=== PATIENT | female | born 1960 | race Caucasian/White ===

== ENCOUNTER → 2017-07-27 | Outpatient (CLI) | payer BC ==
--- NOTE | 2017-07-28 10:38 | MM ---
Reason for exam: screening (asymptomatic). Last mammogram was performed 2 years and 5 months ago. History: Patient is postmenopausal. Family history of breast cancer in grandmother. Physical Findings: A clinical breast exam by your physician is recommended on an annual basis and results should be correlated with mammographic findings. MG 3D Screening Mammo W/Cad Bilateral CC and MLO view(s) were taken. Prior study comparison: February 13, 2015, left breast MG work up mamm w CAD LT. February 04, 2015, bilateral MG screening mammo w CAD. The breast tissue is heterogeneously dense. This may lower the sensitivity of mammography. No significant changes when compared with prior studies. ASSESSMENT: Benign, BI-RAD 2 RECOMMENDATION: Routine screening mammogram of both breasts in 1 year.
== END | disposition home or self-care (01) ==
LOC: RADMAMWWP 14:49
PROVIDERS: ATTEND Obstetrics & Gynecology
DX: Z12.31 Encounter for screening mammogram for malignant neoplasm of breast (principal)
CPT/HCPCS: 77063; G0202

== ENCOUNTER 2018-06-14 09:52 | Day surgery (SDC) | payer BC ==
[2018-06-12 10:31] VITALS: BMI 27.4
[~2018-06-14 09:52] MED LIST: LACTATED RINGERS 1,000 ML IV SCH
[2018-06-14] MEDS ORDERED: LIDOCAINE 1% 20 ML VIAL (10MG/ML) FOR IV START INTRADERMA ONE (10:37)
[2018-06-14 10:39] VITALS: TEMP 97
[2018-06-14] MEDS ORDERED: PROPOFOL 10 MG/ML 20 ML VIAL IV ONE (11:18)
--- NOTE | 2018-06-14 11:31 | P.PCN ---
Date of Procedure: 06/14/18 Procedure(s) Performed: BRIEF HISTORY: Patient is a 8-year-old pleasant white female, scheduled for an elective colonoscopy as a part of screening for colorectal neoplasia. PROCEDURE PERFORMED: Colonoscopy. PREOPERATIVE DIAGNOSIS: Screening for colon cancer. IV sedation per Anesthesia. PROCEDURE: After informed consent was obtained, the patient, was brought into the endoscopy unit. IV sedation was administered by Anesthesia under continuous monitoring. Digital rectal examination was normal. Initially the Olympus CF- 160 flexible video colonoscope was then inserted in the rectum, gradually advanced into the cecum without any difficulty. Careful examination was performed as the scope was gradually being withdrawn. Ileocecal valve and the appendiceal orifice were visualized and appeared normal. Prep was excellent. Mucosa of the cecum, ascending colon, transverse colon, descending colon, sigmoid colon, and rectum appeared normal. Retroflexion was performed in the rectum and no lesions were seen. The patient tolerated the procedure well. IMPRESSION: Normal-appearing colon from rectum to cecum with no evidence of colorectal neoplasia . RECOMMENDATIONS: Findings of this examination were discussed with the patient as well as a family. She was advised to have a repeat screening colonoscopy in 10 years.
[2018-06-14 11:35] VITALS: RESP 16
[2018-06-14 11:57] VITALS: BP 119/72; PULSE 66
== END 2018-06-14 12:27 | disposition home or self-care (01) ==
LOC: ORWHC2ENDO 09:52
PROVIDERS: ATTEND Internal Medicine Gastroenterology
DX: Z12.11 Encounter for screening for malignant neoplasm of colon (principal); I10 Essential (primary) hypertension; E78.5 Hyperlipidemia, unspecified; Z86.718 Personal history of other venous thrombosis and embolism; Z79.82 Long term (current) use of aspirin; Z79.899 Other long term (current) drug therapy; Z88.8 Allergy status to other drugs, medicaments and biological substances
CPT/HCPCS: 45378; J2704

== ENCOUNTER → 2018-09-01 | Outpatient (CLI) | payer BC ==
--- NOTE | 2018-09-03 13:41 | MM ---
Reason for exam: screening (asymptomatic). Last mammogram was performed 1 year and 1 month ago. History: Patient is postmenopausal. Family history of breast cancer in grandmother. Physical Findings: A clinical breast exam by your physician is recommended on an annual basis and results should be correlated with mammographic findings. MG 3D Screening Mammo W/Cad Bilateral CC and MLO view(s) were taken. Prior study comparison: July 27, 2017, bilateral MG 3d screening mammo w/cad. February 13, 2015, left breast MG work up mamm w CAD LT. The breast tissue is heterogeneously dense. This may lower the sensitivity of mammography. There is no discrete abnormality. No significant changes when compared with prior studies. ASSESSMENT: Negative, BI-RAD 1 RECOMMENDATION: Routine screening mammogram of both breasts in 1 year.
== END | disposition home or self-care (01) ==
LOC: RADMAMWWP 11:13
PROVIDERS: ATTEND Obstetrics & Gynecology
DX: Z12.31 Encounter for screening mammogram for malignant neoplasm of breast (principal); Z80.3 Family history of malignant neoplasm of breast
CPT/HCPCS: 77063; 77067

== ENCOUNTER → 2020-05-06 | Outpatient (CLI) | payer OTHER ==
[2020-05-06 15:31] LABS: Appearance,Urine Clear (Clear); Bilirubin,Urine Negative (Negative); Blood,Urine Negative (Negative); Color,Urine Light Yellow; Glucose,Urine (UA) Negative (Negative); Ketones,Urine Negative (Negative); Leukocyte Esterase,Urine Negative (Negative); Nitrite,Urine Negative (Negative); PH, Urine 6.5 (5.0-8.0); Protein,Urine Negative (Negative); Specific Gravity,Urine 1.004 (1.001-1.035); Urobilinogen,Urine <2.0 mg/dL (<2.0)
[2020-05-06 15:42] LABS: INR 0.9 (<1.2); Partial Thromboplastin Time 25.1 sec (22.0-30.0); Prothrombin Time 9.6 sec (9.0-12.0)
[2020-05-06 15:43] LABS: HCT 44.7 % (34.0-46.0); HGB 14.6 gm/dL (11.4-16.0); MCHC 32.6 g/dL (31.0-37.0); Mean Platelet Volume 8.2; Platelet Count 236 k/uL (150-450); RBC 4.86 m/uL (3.80-5.40); RDW 12.5 % (11.5-15.5); WBC 6.3 k/uL (3.8-10.6)
[2020-05-06 15:59] LABS: ALT 19 U/L (4-34); AST 25 U/L (14-36); African American GFR (CKD) >90 (>60 ml/min/1.73 sqM); Albumin 4.2 g/dL (3.5-5.0); Alkaline Phosphatase 77 U/L (38-126); Anion Gap 8 mmol/L; Blood Urea Nitrogen 18 mg/dL (7-17); Calcium 9.3 mg/dL (8.4-10.2); Carbon Dioxide 23 mmol/L (22-30); Chloride 108 mmol/L (98-107); Glucose 88 mg/dL (74-99); Non-African American GFR(CKD) >90 (>60 ml/min/1.73 sqM); Potassium 4.2 mmol/L (3.5-5.1); Sodium 139 mmol/L (137-145); Total Bilirubin 0.4 mg/dL (0.2-1.3); Total Protein 7.4 g/dL (6.3-8.2)
== END | disposition home or self-care (01) ==
LOC: LABPAT 13:13
PROVIDERS: ATTEND Orthopaedic Surgery
DX: Z01.818 Encounter for other preprocedural examination (principal)
CPT/HCPCS: 80053; 81003; 85027; 85610; 85730; 87070

== ENCOUNTER 2020-05-11 05:31 | Day surgery (SDC) | payer OTHER ==
[2020-05-08 09:31] VITALS: BMI 25.4
[~2020-05-11 05:31] MED LIST changes: +ACETAMINOPHEN TAB 500 MG TAB PO ONE; +GABAPENTIN 300 MG CAP PO ONE; +HYDROmorphone 0.5 MG/0.5 ML SYRINGE IVP PRN; -LACTATED RINGERS 1,000 ML IV SCH; +MELOXICAM 7.5 MG TAB PO ONE; +TRANEXAMIC ACID 1,000 MG in SODIUM CHLORIDE 0.9% 100 ML IVPB ONE
[2020-05-11] MEDS ORDERED: ACETAMINOPHEN TAB 500 MG TAB ONE (06:13)
[2020-05-11] MEDS ORDERED: ONDANSETRON 4 MG/2 ML VIAL ONE (06:13)
[2020-05-11] MEDS: LACTATED RINGERS 1,000 ML IV SCH ×3 (06:15→20:12)
[2020-05-11] MEDS ORDERED: ONDANSETRON 4 MG/2 ML VIAL IVP ONE (06:50)
[2020-05-11] MEDS ORDERED: DEXAMETHASONE SOD PHOSPHATE 10 MG/ML 1 ML VIAL IV ONE (06:50)
[2020-05-11] MEDS ORDERED: PHENYLEPHRINE-0.9% NACL SYG 1 MG/10 ML SYRINGE ONE (06:55)
[2020-05-11] MEDS ORDERED: MIDAZOLAM 2 MG/2 ML VIAL ONE (06:55)
[2020-05-11] MEDS ORDERED: TRANEXAMIC ACID 1,000 MG/10 ML VIAL ONE (06:55)
[2020-05-11] MEDS ORDERED: PROPOFOL 10 MG/ML 20 ML VIAL IV ONE (06:55)
[2020-05-11] MEDS ORDERED: fentaNYL (PF) 50 MCG/ML 2 ML AMP ONE (06:55)
[2020-05-11] MEDS ORDERED: SODIUM CHLORIDE 0.9% 100 ML BAG ONE (06:55)
[2020-05-11] MEDS ORDERED: HEPARIN SODIUM,PORCINE 10,000 UNIT/ML 1 ML VIAL ONE (06:55)
[2020-05-11] MEDS ORDERED: SODIUM CHLORIDE 0.9% IRRIG 1,000 ML BTL IRRIGATION ONE (06:55)
[2020-05-11] MEDS ORDERED: ceFAZolin 3,000 MG in SODIUM CHLORIDE 0.9% IRRIGATIO 3,000 ML IRRIGATION ONE (06:59)
[2020-05-11] MEDS ORDERED: ONDANSETRON 4 MG/2 ML VIAL IVP PRN (07:05)
[2020-05-11] MEDS ORDERED: hydrOXYzine PAMOATE 25 MG CAP PO PRN (07:05)
[2020-05-11] MEDS ORDERED: DIAZEPAM 5 MG TAB PO PRN (07:05)
[2020-05-11] MEDS ORDERED: NALOXONE 0.4 MG/ML 1 ML VIAL IV PRN (07:05)
[2020-05-11] MEDS ORDERED: HYDROcodone/APAP 5-325MG 1 EACH TAB PO PRN (07:05)
[2020-05-11] MEDS ORDERED: HYDROmorphone 0.5 MG/0.5 ML SYRINGE IVP PRN ×2 (07:05)
[2020-05-11] MEDS ORDERED: MAGNESIUM HYDROXIDE 2,400 MG/10 ML CUP PO PRN (07:05)
[2020-05-11] MEDS ORDERED: HYDROmorphone 1 MG/ML 1 ML SYRINGE IVP PRN (07:05)
[2020-05-11] MEDS: ROPIVACAINE 246.25 MG, EPINEPHrine 0.5 MG, KETOROLAC 30 MG, cloNIDine HCL/PF 80 MCG, WA... MISCELLANE ONE ×10 (07:25→08:02)
[2020-05-11] MEDS ORDERED: LACTATED RINGERS 1,000 ML IV ONE (08:01)
--- NOTE | 2020-05-11 08:22 | P.OP ---
Date of Procedure: 05/11/20 Preoperative Diagnosis: Severe osteoarthritis right hip Postoperative Diagnosis: Severe osteoarthritis right hip Procedure(s) Performed: Right total hip arthroplasty with a direct anterior approach Implants: Chance and nephew Polarstem size 3 standard Chance [employer] Nephew R3, 3 hole acetabular shell, 48 mm Chance [employer] Nephew reflection 6.5 mm cancellus screw, 20 mm 2 Chance [employer] Nephew R3, XLPE 20 acetabular liner Chance & Nephew Oxinium femoral head 32 m, -3 All components were press-fit. The articulation is Oxinium on polyethylene. Anesthesia: spinal Surgeon: Dwight Navarrete Environmental Issues Instructor #1: Evelyn Rey Estimated Blood Loss (ml): 100 Pathology: other (Femoral head) Condition: stable Disposition: PACU Indications for Procedure: After failure of conservative treatment we discussed the surgical and nonsurgical treatment options at length. Patient wishes to proceed with a total hip arthroplasty with a direct anterior approach. Complications specific to this procedure were discussed at length, including but not limited to infection, leg length discrepancy, dislocation, and nerve injury. Covid-19 was also discussed at length with the patient, and they are aware of the current policies and procedures. The patient was given the option of delaying surgery, but they elect to proceed knowing these risks. Patient is aware of all these complications and informed consent was obtained Operative Findings: The operative findings are consistent with severe osteoarthritis of the right hip Description of Procedure: Patient was seen and evaluated in the preoperative area, consent was reviewed, and the surgical site was marked with a skin marker. Patient was then brought to the operating room and given prophylactic antibiotics intravenously. 1 g of Tranexamic acid was also given. A spinal anesthetic was administered by the anesthesia department. The patient was then placed on the [place] table with the bony prominences well-padded. The hip area was then prepped and draped in usual sterile fashion. A universal timeout was then performed, which confirmed the patient's name, surgical site, ALLERGIES, and procedure being performed. Next the incision site was located at 1 cm distal and 1 cm lateral to the anterior superior iliac spine. The skin and subcutaneous tissues were sharply incised. Incision was carefully dissected down to the fascia overlying the tensor fascia jerod muscle. This fascia was then incised in line with the incision. Next, using blunt finger dissection, the tensor fascia jerod muscle was dissected off its investing fascia. The muscle was then carefully retracted laterally with a cobra retractor over the lateral neck of the femur. Next, the circumflex vessels were identified and cauterized using the AquaMantis device. The anterior hip capsule was then exposed. The capsule was then opened and an inverted T fashion. Cobra retractors were then placed intracapsularly. The proximal femur was then visualized. The femoral neck was then osteotomized appropriate level above the lesser trochanter. Small amount of traction was placed with the [place] table. A small wedge of bone was then removed from the remaining femoral head. Next, using a corkscrew femoral head was easily removed from the acetabulum. On gross visual inspection, the femoral head had complete loss of articular cartilage in multiple periarticular osteophytes. Attention was then turned to the acetabulum. the acetabulum was exposed and any remaining labrum was excised. Sequential reaming of the acetabulum was performed using fluoroscopic guidance. When the appropriate size was reached, a trial was then placed. The position and fit of the trial was checked with fluoroscopy. The trial was then removed. Then, using fluoroscopic guidance, the final implant was impacted at 20 of anteversion and 40 of abduction, and fully seated in the acetabulum. 2 screws were then placed in the acetabulum. Again fluoroscopy was used to check position of the screws. Next, the liner was then impacted, with a 20 elevated liner located in the anterior superior quadrant. Component locking was confirmed. Attention was then directed to the femur. With the aid of the [place] table, the femur was externally rotated to approximately 130, extended, and abducted under the opposite leg. A side hook was then placed under the proximal femur, and the side hook elevator was used to elevate the proximal femur. Retractors were then placed. A capsular release was performed, as well as a release of the conjoined tendon, which afforded excellent visualization of the proximal femur. Next, a box osteotome was used to lateralize the proximal femur. A icer hand was then used to locate the femoral canal. Sequential broaching was then performed with appropriate size which afforded excellent fixation in the proximal femur. A trial was then placed with appropriate head and neck, and the hip was gently reduced with the aid of the L[place] table. Fluoroscopy was then used to check position of the components, as well as to ensure equal leg lengths. The hip was then gently dislocated and the trials were then removed. Final implants were then impacted and the hip was again reduced. Final fluoroscopic x-rays confirmed that the components were in anatomic position, as well as equal leg lengths. The hip was also taken through range of motion, and found to be stable. The hip was then copiously irrigated with antibiotic solution with pulsatile lavage. The hip was then irrigated with Irrisept solution. The soft tissues were then injected with a ropivacaine solution, which consisted of 246.25 mg of ropivacaine, 0.5 mg of epinephrine, 30 mg of Toradol, 80 g of clonidine, and 48.45 mL of sterile water, for a total of 100 mL of fluid injected. A second dose of 1 g of Tranexamic acid was also given. the fascia was then closed with 2-0 strata fix suture. The subcutaneous tissue was closed with 3-0 Vicryl. The subcuticular tissue was closed with 3-0 strata fix suture. The skin was then closed with Dermabond glue and a sterile silver dressing. The patient was then transferred to the recovery room in stable condition. The bar assistant ALEXYS Lovelace was required due to the complexity of surgery, and the need for skilled surgical services coordinator for positioning, draping, exposure, retraction, and closure of the wound.
--- NOTE | 2020-05-11 09:51 | XR ---
Limited right hip HISTORY: Status post right hip arthroplasty Single frontal view of the right hip Patient is status post right hip arthroplasty. There is anatomic alignment. IMPRESSION: Follow-up.
[2020-05-11] MEDS: SODIUM CHLORIDE 0.9% 1,000 ML IV SCH ×2 (11:06→22:55)
--- NOTE | 2020-05-11 12:31 | P.CONS ---
History of Present Illness - Reason for Consult Determinations regarding antihypertensive medications - History of Present Illness Patient is a pleasant 59-year-old female admitted the for right hip arthroplasty. Patient is feeling well except for mild the tingling numbness in both legs probably because of anesthesia. Patient had any fever chills nausea vomiting patient doesn't have any surgical drain patient doesn't have any Norton catheter at this time. Review of Systems REVIEW OF SYSTEMS: CONSTITUTIONAL: No fever, no malaise, no fatigue. HEENT: No recent visual problems or hearing problems. Denied any sore throat. CARDIOVASCULAR: No chest pain, orthopnea, PND, no palpitations, no syncope. PULMONARY: No shortness of breath, no cough, no hemoptysis. GASTROINTESTINAL: No diarrhea, no nausea, no vomiting, no abdominal pain. NEUROLOGICAL: No headaches, no weakness, no numbness. HEMATOLOGICAL: Denies any bleeding or petechiae. GENITOURINARY: Denies any burning micturition, frequency, or urgency. MUSCULOSKELETAL/RHEUMATOLOGICAL: Denies any joint pain, swelling, or any muscle pain. ENDOCRINE: Denies any polyuria or polydipsia. The rest of the 14-point review of systems is negative. Past Medical History Past Medical History: Deep Vein Thrombosis (DVT), Hyperlipidemia Additional Past Medical History / Comment(s): Hx brain aneurysym in 2005. History of Any Multi-Drug Resistant Organisms: None Reported Past Surgical History: Orthopedic Surgery, Uterine Ablation Additional Past Surgical History / Comment(s): Coils placed for aneurysym in 2005, right wrist carpal tunnel surgery, left knee arthroscopy. Past Anesthesia/Blood Transfusion Reactions: Previous Problems w/ Anesthesia Additional Past Anesthesia/Blood Transfusion Reaction / Comm: Slow to wake up. Past Psychological History: No Psychological Hx Reported Smoking Status: Never smoker Past Alcohol Use History: Occasional Past Drug Use History: None Reported - Past Family History Mother Family Medical History: No Reported History Medications and Allergies Home Medications Medication Instructions Recorded Confirmed Type Lisinopril [Zestril] 10 mg PO QAM 06/12/18 05/11/20 History Lysine 500 mg PO DAILY 06/12/18 05/06/20 History Cholecalciferol [Vitamin D3 (25 1,000 unit PO DAILY 05/06/20 05/06/20 History Mcg = 1000 Iu)] Cholestrol Med (Unknown Name) 1 tab PO QAM 05/06/20 05/11/20 History Multivitamin/Iron/Folic Acid 1 each PO DAILY 05/06/20 05/06/20 History [Centrum Complete Multivit Tab] Allergies Allergy/AdvReac Type Severity Reaction Status Date / Time sumatriptan [From Imitrex] Allergy Rash/Hives Verified 05/11/20 05:44 Physical Exam Vitals: Vital Signs Temp Pulse Resp BP Pulse Ox 05/11/20 10:20 98.5 F 58 L 16 107/62 99 05/11/20 09:46 52 L 16 100/58 100 05/11/20 09:31 48 L 16 97/54 100 05/11/20 09:15 48 L 16 104/58 100 05/11/20 09:01 51 L 16 99/55 99 05/11/20 08:46 56 L 16 90/53 98 05/11/20 08:33 97.2 F L 56 L 16 123/59 93 L 05/11/20 05:50 96.5 F L 68 16 136/75 97 Intake and Output 05/10/20 05/11/20 05/11/20 22:59 06:59 14:59 Intake Total 1001 650 Output Total 100 Balance 1001 550 Intake: IV 1001 650 Output: Estimated Blood Loss 100 Other: Weight 72.6 kg 72.6 kg PHYSICAL EXAMINATION: GENERAL: The patient is alert and oriented x3, not in any acute distress. Well developed, well nourished. HEENT: Pupils are round and equally reacting to light. EOMI. No scleral icterus. No conjunctival pallor. Normocephalic, atraumatic. No pharyngeal erythema. No thyromegaly. CARDIOVASCULAR: S1 and S2 present. No murmurs, rubs, or gallops. PULMONARY: Chest is clear to auscultation, no wheezing or crackles. ABDOMEN: Soft, nontender, nondistended, normoactive bowel sounds. No palpable organomegaly. MUSCULOSKELETAL: No joint swelling or deformity. EXTREMITIES: No cyanosis, clubbing, or pedal edema. NEUROLOGICAL: Gross neurological examination did not reveal any focal deficits. SKIN: No rashes. 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 -History of DVT presently not on anticoagulation due to prophylaxis postoperatively surgery is for arthritic services. -Right hip arthroplasty: Pain management and due to prophylaxis as per primary primary service
--- NOTE | 2020-05-11 12:34 | FL ---
Fluoroscopy HISTORY: Anterior hip replacement 35 seconds fluoroscopy time supplied to the referring clinician. 3 intraoperative C-arm images docum ent the procedure. See dictated report from orthopedic surgery.
--- NOTE | 2020-05-11 12:34 | XR ---
Limited right hip HISTORY: Anterior hip replacement 3 intraoperative C-arm images document the report
[2020-05-11] MEDS: HYDROcodone/APAP 5-325MG 1 EACH TAB PO PRN ×2 (14:18→21:30)
[2020-05-11] MEDS ORDERED: SENNOSIDES-DOCUSATE SODIUM 1 EACH TAB PO SCH (21:00)
[2020-05-12] MEDS: HYDROcodone/APAP 5-325MG 1 EACH TAB PO PRN ×2 (06:58→13:17)
[2020-05-12 07:55] VITALS: PULSE 76; RESP 17; TEMP 97.6
[2020-05-12 07:58] LABS: Basophils % (A) 0 %; Eosinophils % (A) 0 %; HCT 35.7 % (34.0-46.0); HGB 11.7 gm/dL (11.4-16.0); Lymphocytes # (A) 2.8 k/uL (1.0-4.8); Lymphocytes % (A) 28 %; MCH 29.7 pg (25.0-35.0); MCHC 32.8 g/dL (31.0-37.0); MCV 90.8 fL (80.0-100.0); Mean Platelet Volume 7.6; Monocytes # (A) 0.5 k/uL (0-1.0); Monocytes % (A) 5 %; Neutrophils # (A) 6.3 k/uL (1.3-7.7); Neutrophils % (A) 64 %; Platelet Count 165 k/uL (150-450); RBC 3.93 m/uL (3.80-5.40); RDW 12.3 % (11.5-15.5); WBC 9.9 k/uL (3.8-10.6)
[2020-05-12] MEDS ORDERED: RIVAROXABAN 10 MG TAB PO SCH (09:00)
--- NOTE | 2020-05-12 10:32 | P.DS ---
Providers Expected date of discharge: 05/12/20 Attending physician: Dwight Navarrete Consults: 05/11/20 07:05 Consult Physician Routine Consulting Provider: Leticia Brown Consult Reason/Comments: medical management and anticoagulation. Hx of aneurysm coil and DVT Do you want consulting provider notified?: Yes Primary care physician: Stated None - Discharge Diagnosis(es) (1) Osteoarthritis of right hip Current Visit: Yes Status: Acute (2) S/P total hip arthroplasty Current Visit: Yes Status: Acute Hospital Course: This is a 59-year-old female with known history of degenerative arthritis of the right hip. The patient presents for evaluation. After discussion and consideration patient elects to proceed with total hip arthroplasty. The patient is seen preoperatively by Dr. Navarrete and medically cleared for surgery by their primary care physician. Patient is admitted to [facility] on 05/11/2020 for total hip arthroplasty. The procedures performed without complication or sequelae. The patient is doing well postoperatively. Labs and vital signs are stable on day of discharge. On day of discharge patient's hip incision is healing well. There is minimal erythema. There is no drainage noted at this time. There is minimal soft ti ssue swelling to the hip and thigh. Patient has full foot and ankle motion without difficulty or pain. Calf is soft and nontender to palpation. Neurovascular status to the right lower extremity is intact. Patient is discharged home in good condition. Opioid start talking form is reviewed and signed at patient bedside. Please see med rec for accurate list of home medications. Plan - Discharge Summary Discharge Rx Participant: Yes New Discharge Prescriptions: New HYDROcodone/APAP 5-325MG [Delton 5-325] 1 - 2 tab PO Q6HR PRN #48 tab PRN Reason: Pain Sennosides [Senokot] 2 tab PO DAILY PRN #60 tablet PRN Reason: Constipation No Action Lisinopril [Zestril] 10 mg PO QAM Lysine 500 mg PO DAILY Cholecalciferol [Vitamin D3 (25 Mcg = 1000 Iu)] 1,000 unit PO DAILY Multivitamin/Iron/Folic Acid [Centrum Complete Multivit Tab] 1 each PO DAILY Cholestrol Med (Unknown Name) 1 tab PO QAM Discharge Medication List Lisinopril [Zestril] 10 mg PO QAM 06/12/18 [History] Lysine 500 mg PO DAILY 06/12/18 [History] Cholecalciferol [Vitamin D3 (25 Mcg = 1000 Iu)] 1,000 unit PO DAILY 05/06/20 [History] Cholestrol Med (Unknown Name) 1 tab PO QAM 05/06/20 [History] Multivitamin/Iron/Folic Acid [Centrum Complete Multivit Tab] 1 each PO DAILY 05/06/20 [History] HYDROcodone/APAP 5-325MG [Delton 5-325] 1 - 2 tab PO Q6HR PRN #48 tab 05/12/20 [Rx] Sennosides [Senokot] 2 tab PO DAILY PRN #60 tablet 05/12/20 [Rx] Follow up Appointment(s)/Referral(s): [facility], [NON-STAFF] - As Needed Dwight Navarrete DO [Doctor of Osteopathic Medicine] - 05/22/20 10:05 am Activity/Diet/Wound Care/Special Instructions: Weightbearing as tolerated with walker. Leave dressing intact. Dressing may be removed by home care nurse or by patient in 10 days. May shower with dressing on. Recommend use of compression stockings daily until follow up to help prevent swelling and blood clots. May remove at night before sleeping. Please follow-up with [facility] in 2 weeks and call with any questions or concerns, . Discharge Disposition: HOME WITH HOME HEALTH SERVICES
[2020-05-12 13:11] VITALS: BP 99/66
--- NOTE | 2020-05-12 15:26 | P.PN ---
Subjective Progress Note Date: 05/12/20 Principal diagnosis: Patient is a pleasant 59-year-old female admitted the for right hip arthroplasty. Patient is feeling well except for mild the tingling numbness in both legs probably because of anesthesia. Patient had any fever chills nausea vomiting patient doesn't have any surgical drain patient doesn't have any Norton catheter at this time. 05/12/2020 Patient is seen and evaluated and follow-up currently sitting up in the chair with no acute overnight issues. Patient worked with physical therapy and was able to do the stairs and will be continuing with home care in the outpatient setting. Discussed with orthopedics and neurology about initiating anticoagulation and given the risks versus benefits due to history of aneurysm with coil placement back in 2005 patient will be initiated on Eliquis 2.5 mg twice daily for a period of approximately 30 days. Patient will need to follow- up with her neurologist in the outpatient setting. Patient is agreeable to this and case management verified coverage and a prescription was sent to the pharmacy. Currently no reports of chest pain, shortness of breath, or palpitations. Patient is afebrile. No reports of nausea or vomiting and patient is tolerating diet. States she is passing gas but has not had a bowel m ovement yet. Patient is having some mild localization of he with tingling to her right thigh but has improved since yesterday. Surgical dressing is dry and intact with minimal erythema noted. Objective - Vital Signs Vital signs: Vital Signs Temp 97.6 F 05/12/20 07:00 Pulse 76 05/12/20 07:10 Resp 17 05/12/20 07:10 BP 99/66 05/12/20 13:11 Pulse Ox 96 05/12/20 07:00 Intake & Output 05/11/20 05/12/20 05/12/20 18:59 06:59 18:59 Intake Total 1190 1430 Output Total 100 Balance 1090 1430 Weight 72.6 kg Intake: IV 650 Intake, IV Titration 830 Amount Sodium Chloride 0.9% 1, 780 000 ml @ 65 mls/hr IV . [id number] [facility] Rx#:[id number] ceFAZolin 2 gm In Sodium 50 Chloride 0.9% 50 ml @ 100 mls/hr IVPB Q8HR [facility] Rx# :[id number] Oral 540 600 Output: Estimated Blood Loss 100 Other: Voiding Method Toilet Toilet # Voids 1 2 - Exam GENERAL: The patient is alert and oriented x3, not in any acute distress. Well developed, well nourished. HEENT: Pupils are round and equally reacting to light. EOMI. No scleral icterus. No conjunctival pallor. Normocephalic, atraumatic. No pharyngeal erythema. No thyromegaly. CARDIOVASCULAR: S1 and S2 present. No murmurs, rubs, or gallops. PULMONARY: Chest is clear to auscultation, no wheezing or crackles. ABDOMEN: Soft, nontender, nondistended, normoactive bowel sounds. No palpable organomegaly. MUSCULOSKELETAL: No joint swelling or deformity. EXTREMITIES: No cyanosis, clubbing, or pedal edema. NEUROLOGICAL: Gross neurological examination did not reveal any focal deficits. SKIN: No rashes. - Labs CBC & Chem 7: 05/12/20 07:28 Assessment and Plan Assessment: -Hypertension. 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 Discussed with neurology and patient will need to follow-up with neurologist in the outpatient setting and okay to initiate low-dose anticoagulant of Eliquis 2.5 mg twice daily -History of DVT presently not on anticoagulation -Right hip arthroplasty: Pain management and dvt prophylaxis as per primary primary service Plan: Patient to initiate Eliquis 2.5 mg twice daily for the next 30 days. Discussed with orthopedic surgery along with neurology as well as the patient. Discussed the risks versus benefits and patient is agreeable. Case management verified coverage and patient was provided a coupon for 1 month free. Orthopedic surgery likely discharging the patient today. Patient will continue with home care in the outpatient setting. Okay to resume home medications. Further recommendations to follow. Will continue to follow along with orthopedic surgery while hospitalized.
== END 2020-05-12 13:23 | disposition home health service (06) ==
LOC: OR 05:31 → 4SSUR 08:33 → OR 05-12 13:23
PROVIDERS: ATTEND Orthopaedic Surgery
DX: M16.11 Unilateral primary osteoarthritis, right hip (principal); I10 Essential (primary) hypertension; E78.5 Hyperlipidemia, unspecified; Z88.8 Allergy status to other drugs, medicaments and biological substances; Z79.899 Other long term (current) drug therapy; Z86.718 Personal history of other venous thrombosis and embolism; Z97.3 Presence of spectacles and contact lenses
CPT/HCPCS: 97116; 97110; 97161; 97165; 86891; 86900; 86901; 85025; 86850; 88300; 73501; 73502; 27130; C1776; J2250; J0171; J1644; J1100; J0690 ×2; J2405; J3010; J1885; J2795; J2370; J2704; J0735

== ENCOUNTER → 2020-05-29 | Outpatient (CLI) | payer OTHER ==
--- NOTE | 2020-06-01 10:29 | MM ---
Reason for exam: screening (asymptomatic). Last mammogram was performed 1 year and 9 months ago. History: Patient is postmenopausal. Family history of breast cancer in grandmother. Physical Findings: A clinical breast exam by your physician is recommended on an annual basis and results should be correlated with mammographic findings. MG Screening Mammo w CAD Bilateral CC and MLO view(s) were taken. Prior study comparison: September 01, 2018, bilateral MG 3d screening mammo w/cad. July 27, 2017, bilateral MG 3d screening mammo w/cad. The breast tissue is heterogeneously dense. This may lower the sensitivity of mammography. There is no discrete abnormality. No significant changes when compared with prior studies. ASSESSMENT: Negative, BI-RAD 1 RECOMMENDATION: Routine screening mammogram of both breasts in 1 year.
== END | disposition home or self-care (01) ==
LOC: RADMAMWWP 11:00
PROVIDERS: ATTEND Obstetrics & Gynecology
DX: Z12.31 Encounter for screening mammogram for malignant neoplasm of breast (principal); Z80.3 Family history of malignant neoplasm of breast
CPT/HCPCS: 77067

== ENCOUNTER → 2020-06-25 | Outpatient (CLI) | payer OTHER ==
--- NOTE | 2020-06-25 13:14 | BD ---
EXAMINATION TYPE: Axial Bone Density DATE OF EXAM: 06/25/2020 COMPARISON: NONE CLINICAL HISTORY: 60-year-old female postmenopausal screening Height: 5 FT 6 IN Weight: 162 FRAX RISK QUESTIONS: Alcohol (3 or more units per day): NO Family History (Parent hip fracture): NO Glucocorticoids (More than 3mos): NO (Ex: prednisone, prednisolone, methylprednisolone, dexamethasone, and hydrocortisone). History of Fracture in Adulthood: NO Secondary Osteoporosis: 1. Type 1 Diabetes: NO 2. Hyperthyroidism: NO 3. Menopause before 45: NO 4. Malnutrition: NO 5. Chronic liver disease: NO Rheumatoid Arthritis: NO Current Tobacco Use: NO RISK FACTORS HISTORY OF: Surgery to Spine/Hip(right/left)/Wrist (right/left): RT HIP REPLACEMENT When: APRIL 2020 Family History of Osteoporosis: NO Active: YES Postmenopausal woman: ABLATION AGE 46 SYMPTOMS ON GOING MEDICATIONS: Additional Medications: LISINOPRIL, ATORVASTATIN Additional History: EXAM MEASUREMENTS: Bone mineral densitometry was performed using the [employer] System. Bone mineral density as measured about the Lumbar spine is: ----- L1-L4(G/cm2): 1.022 T Score Values are as follows: ----- L2: -1.9 ----- L3: -0.5 ----- L4: -1.1 ----- L1-L4: -1.3 Bone mineral density has: DECREASED -8.0 % since study of: 2004 Bone mineral density about the L hip (g/cm2): 0.860 T Score values are as follows: -----L Neck: -1.3 -----L Total: -1.0 Bone mineral density has: DECREASED -12.6 % since study of: 2004 IMPRESSION: Osteopenia (T Score between -2.5 and -1). There is slightly increased risk of fracture and the patient may be considered for treatment. Re-Screen 2-5 years. NOTE: T-SCORE=SD OF THE YOUNG ADULT MEAN.
== END | disposition home or self-care (01) ==
LOC: RADBDWWP 10:39
PROVIDERS: ATTEND Obstetrics & Gynecology
DX: M85.80 Other specified disorders of bone density and structure, unspecified site (principal); Z78.0 Asymptomatic menopausal state
CPT/HCPCS: 77080

== ENCOUNTER 2021-03-16 15:01 | Observation (INO) | payer BC, OTHER ==
[2021-03-16] MEDS ORDERED: NITROGLYCERIN OINT 1 INCH/GM PACKET TOPICAL STA (15:19)
[2021-03-16] MEDS ORDERED: ASPIRIN 81 MG PO STA (15:19)
[2021-03-16] MEDS ORDERED: SODIUM CHLORIDE 0.9% 500 ML 500 ML IV STA (15:19)
[2021-03-16 15:33] LABS: Basophils % (A) 1 %; Eosinophils # (A) 0.1 k/uL (0-0.7); Eosinophils % (A) 1 %; HGB 14.9 gm/dL (11.4-16.0); Lymphocytes % (A) 37 %; MCH 30.7 pg (25.0-35.0); MCHC 34.7 g/dL (31.0-37.0); MCV 88.5 fL (80.0-100.0); Mean Platelet Volume 7.3; Monocytes # (A) 0.4 k/uL (0-1.0); Monocytes % (A) 8 %; Neutrophils # (A) 2.7 k/uL (1.3-7.7); Neutrophils % (A) 50 %; Platelet Count 211 k/uL (150-450); RBC 4.86 m/uL (3.80-5.40); WBC 5.4 k/uL (3.8-10.6)
--- NOTE | 2021-03-16 15:34 | ED ---
General Adult HPI - General Chief complaint: Chest Pain Stated complaint: chest pain Time Seen by Provider: 03/16/21 15:10 Source: patient, EMS, RN notes reviewed, old records reviewed Mode of arrival: EMS Limitations: no limitations - History of Present Illness Initial comments: This is a 60-year-old female who presents to the emergency department comp laining that while she was doing some work outside she started having chest pain that radiated to her jaw she was short of breath and diaphoretic and became very nauseated. Patient states the symptoms lasted about 5 minutes and then they slowly subsided and she rested. Patient states she has not had symptoms like this before. Patient states she has high cholesterol and she has a mother was had a lot of cardiac disease. Patient denies any recent fever chills or cough. Patient denies any abdominal pain patient denies any vomiting or diarrhea. Patient denies any lightheadedness or dizziness. Patient denies any swelling to the legs or calf tenderness. - Related Data Home Medications Medication Instructions Recorded Confirmed Lysine 500 mg PO DAILY 06/12/18 03/16/21 lisinopriL [Zestril] 10 mg PO DAILY 06/12/18 03/16/21 Cholecalciferol [Vitamin D3 (25 1,000 unit PO DAILY 05/06/20 03/16/21 Mcg = 1000 Iu)] Multivitamin/Iron/Folic Acid 1 tab PO DAILY 05/06/20 03/16/21 [Centrum Complete Multivit Tab] Aspirin EC [Ecotrin Low Dose] 81 mg PO DAILY 03/16/21 03/16/21 Pravastatin Sodium [Pravachol] 40 mg PO DAILY 03/16/21 03/16/21 Allergies Allergy/AdvReac Type Severity Reaction Status Date / Time sumatriptan [From Imitrex] Allergy Rash/Hives Verified 03/16/21 16:13 Review of Systems ROS Statement: Those systems with pertinent positive or pertinent negative responses have been documented in the HPI. ROS Other: All systems not noted in ROS Statement are negative. Past Medical History Past Medical History: Deep Vein Thrombosis (DVT), Hyperlipidemia Additional Past Medical History / Comment(s): Hx brain aneurysym in 2005. History of Any Multi-Drug Resistant Organisms: None Reported Past Surgical History: Orthopedic Surgery, Uterine Ablation Additional Past Surgical History / Comment(s): Coils placed for aneurysym in 2006, right wrist carpal tunnel surgery. Past Anesthesia/Blood Transfusion Reactions: Previous Problems w/ Anesthesia Additional Past Anesthesia/Blood Transfusion Reaction / Comment(s): Slow to wake up. Past Psychological History: No Psychological Hx Reported Smoking Status: Never smoker Past Alcohol Use History: Occasional Past Drug Use History: None Reported - Past Family History Mother Family Medical History: No Reported History General Exam - General Exam Comments Initial Comments: GENERAL: Patient is well-developed and well-nourished. Patient is nontoxic and well- hydrated and is in mild distress. ENT: Neck is soft and supple. No significant lymphadenopathy is noted. Oropharynx is clear. Moist mucous membranes. Neck has full range of motion without eliciting any pain. EYES: The sclera were anicteric and conjunctiva were pink and moist. Extraocular movements were intact and pupils were equal round and reactive to light. Eyelids were unremarkable. PULMONARY: Unlabored respirations. Good breath sounds bilaterally. No audible rales rhonchi or wheezing was noted. CARDIOVASCULAR: There is a regular rate and rhythm without any murmurs gallops or rubs. ABDOMEN: Soft and nontender with normal bowel sounds. SKIN: Skin is clear with no lesions or rashes and otherwise unremarkable. NEUROLOGIC: Patient is alert and oriented x3. Cranial nerves II through XII are grossly intact. Motor and sensory are also intact. Normal speech, volume and content. Symmetrical smile. MUSCULOSKELETAL: Normal extremities with adequate strength and full range of motion. No lower extremity swelling or edema. No calf tenderness. LYMPHATICS: No significant lymphadenopathy is noted PSYCHIATRIC: Normal psychiatric evaluation. Limitations: no limitations Course Vital Signs 03/16/21 15:08 Temperature 98.3 F Pulse Rate 86 Respiratory 18 Rate Blood Pressure 160/84 O2 Sat by Pulse 100 Oximetry Medical Decision Making - Medical Decision Making EKG shows normal sinus rhythm at 81 bpm ND interval 242 QRS is 92 QT interval 39 0 QTC is 453 per patient's EKG shows no ST segment elevation or depression. Chest x-ray shows no acute abnormality I spoke with Dr. Vaughn he agreed to admit the patient admitted the patient I wrote admitting orders. - Lab Data Result diagrams: 03/16/21 15:22 03/16/21 15:22 Lab Results 03/16/21 03/16/21 03/16/21 Range/Units 15:22 15:22 15:22 WBC 5.4 (3.8-10.6) k/uL RBC 4.86 (3.80-5.40) m/uL Hgb 14.9 (11.4-16.0) gm/dL Hct 43.0 (34.0-46.0) % MCV 88.5 (80.0-100.0) fL MCH 30.7 (25.0-35.0) pg MCHC 34.7 (31.0-37.0) g/dL RDW 12.0 (11.5-15.5) % Plt Count 211 (150-450) k/uL MPV 7.3 Neutrophils % 50 % Lymphocytes % 37 % Monocytes % 8 % Eosinophils % 1 % Basophils % 1 % Neutrophils # 2.7 (1.3-7.7) k/uL Lymphocytes # 2.0 (1.0-4.8) k/uL Monocytes # 0.4 (0-1.0) k/uL Eosinophils # 0.1 (0-0.7) k/uL Basophils # 0.0 (0-0.2) k/uL PT 10.0 (9.0-12.0) sec INR 0.9 (<1.2) APTT 23.7 (22.0-30.0) sec Sodium 140 (137-145) mmol/L Potassium 4.2 (3.5-5.1) mmol/L Chloride 105 (98-107) mmol/L Carbon Dioxide 24 (22-30) mmol/L Anion Gap 11 mmol/L BUN 17 (7-17) mg/dL Creatinine 0.93 (0.52-1.04) mg/dL Est GFR (CKD-EPI)AfAm 77 (>60 ml/min/1.73 sqM) Est GFR (CKD-EPI)NonAf 67 (>60 ml/min/1.73 sqM) Glucose 92 (74-99) mg/dL Calcium 9.9 (8.4-10.2) mg/dL Magnesium 2.0 (1.6-2.3) mg/dL Total Bilirubin 0.6 (0.2-1.3) mg/dL AST 30 (14-36) U/L ALT 22 (4-34) U/L Alkaline Phosphatase 90 (38-126) U/L Troponin I (0.000-0.034) ng/mL Total Protein 7.9 (6.3-8.2) g/dL Albumin 4.6 (3.5-5.0) g/dL 03/16/21 Range/Units 15:22 WBC (3.8-10.6) k/uL RBC (3.80-5.40) m/uL Hgb (11.4-16.0) gm/dL Hct (34.0-46.0) % MCV (80.0-100.0) fL MCH (25.0-35.0) pg MCHC (31.0-37.0) g/dL RDW (11.5-15.5) % Plt Count (150-450) k/uL MPV Neutrophils % % Lymphocytes % % Monocytes % % Eosinophils % % Basophils % % Neutrophils # (1.3-7.7) k/uL Lymphocytes # (1.0-4.8) k/uL Monocytes # (0-1.0) k/uL Eosinophils # (0-0.7) k/uL Basophils # (0-0.2) k/uL PT (9.0-12.0) sec INR (<1.2) APTT (22.0-30.0) sec Sodium (137-145) mmol/L Potassium (3.5-5.1) mmol/L Chloride (98-107) mmol/L Carbon Dioxide (22-30) mmol/L Anion Gap mmol/L BUN (7-17) mg/dL Creatinine (0.52-1.04) mg/dL Est GFR (CKD-EPI)AfAm (>60 ml/min/1.73 sqM) Est GFR (CKD-EPI)NonAf (>60 ml/min/1.73 sqM) Glucose (74-99) mg/dL Calcium (8.4-10.2) mg/dL Magnesium (1.6-2.3) mg/dL Total Bilirubin (0.2-1.3) mg/dL AST (14-36) U/L ALT (4-34) U/L Alkaline Phosphatase (38-126) U/L Troponin I <0.012 (0.000-0.034) ng/mL Total Protein (6.3-8.2) g/dL Albumin (3.5-5.0) g/dL Disposition Clinical Impression: Chest pain Disposition: ADMITTED IP TO THIS HOSP Referrals: Dwight Daniel DO [Primary Care Provider] - 1-2 days Time of Disposition: 16:18
--- NOTE | 2021-03-16 15:38 | XR ---
EXAMINATION TYPE: XR chest 2V DATE OF EXAM: 03/16/2021 COMPARISON: NONE HISTORY: Chest pain TECHNIQUE: Frontal and lateral views of the chest are obtained. FINDINGS: There is no focal air space opacity, pleural effusion, or pneumothorax seen. The cardiac silhouette size is within normal limits. There is some biapical pleural thickening. There are overlyi ng leads, artifacts. The aorta is dense. The osseous structures are intact. IMPRESSION: No acute cardiopulmonary process.
[2021-03-16 15:44] LABS: Potassium 4.2 mmol/L (3.5-5.1)
[2021-03-16 15:45] LABS: Albumin 4.6 g/dL (3.5-5.0); Calcium 9.9 mg/dL (8.4-10.2); Total Bilirubin 0.6 mg/dL (0.2-1.3); Total Protein 7.9 g/dL (6.3-8.2)
[2021-03-16 16:00] LABS: INR 0.9 (<1.2); Partial Thromboplastin Time 23.7 sec (22.0-30.0)
[2021-03-16] MEDS ORDERED: NITROGLYCERIN SL TABS 0.4 MG TAB SUBLINGUAL PRN (16:19)
--- NOTE | 2021-03-16 17:16 | P.HPIM ---
History of Present Illness 60-year-old pleasant female came in with compensative chest pain radiating to her jaw which started when she was a working outside in her lawn patient was diaphoretic as well and bit and was not shaded patient chest pain is mild to m oderate pressure like sensation started in the neck area radiating to the entire chest precordial area. Patient had an EKG which is within normal chest x-ray did not show any significant abnormality facet of troponin is negative patient denied any lightheadedness or dizziness. Patient does have family history of heart disease in mother which appears to be valvular heart disease. Patient denied any fever chills patient any cough. Patient chest pain lasted for 5 minutes. Review of Systems REVIEW OF SYSTEMS: CONSTITUTIONAL: No fever, no malaise, no fatigue. HEENT: No recent visual problems or hearing problems. Denied any sore throat. CARDIOVASCULAR: No orthopnea, PND, no palpitations, no syncope. PULMONARY: No shortness of breath, no cough, no hemoptysis. GASTROINTESTINAL: No diarrhea, no nausea, no vomiting, no abdominal pain. NEUROLOGICAL: No headaches, no weakness, no numbness. HEMATOLOGICAL: Denies any bleeding or petechiae. GENITOURINARY: Denies any burning micturition, frequency, or urgency. MUSCULOSKELETAL/RHEUMATOLOGICAL: Denies any joint pain, swelling, or any muscle pain. ENDOCRINE: Denies any polyuria or polydipsia. The rest of the 14-point review of systems is negative. Past Medical History Past Medical History: Deep Vein Thrombosis (DVT), Hyperlipidemia Additional Past Medical History / Comment(s): Hx brain aneurysym in 2005. History of Any Multi-Drug Resistant Organisms: None Reported Past Surgical History: Orthopedic Surgery, Uterine Ablation Additional Past Surgical History / Comment(s): Coils placed for aneurysym in 2005, right wrist carpal tunnel surgery. Past Anesthesia/Blood Transfusion Reactions: Previous Problems w/ Anesthesia Additional Past Anesthesia/Blood Transfusion Reaction / Comment(s): Slow to wake up. Past Psychological History: No Psychological Hx Reported Smoking Status: Never smoker Past Alcohol Use History: Occasional Past Drug Use History: None Reported - Past Family History Mother Family Medical History: No Reported History Medications and Allergies Home Medications Medication Instructions Recorded Confirmed Type Lysine 500 mg PO DAILY 06/12/18 03/16/21 History lisinopriL [Zestril] 10 mg PO DAILY 06/12/18 03/16/21 History Cholecalciferol [Vitamin D3 (25 1,000 unit PO DAILY 05/06/20 03/16/21 History Mcg = 1000 Iu)] Multivitamin/Iron/Folic Acid 1 tab PO DAILY 05/06/20 03/16/21 History [Centrum Complete Multivit Tab] Aspirin EC [Ecotrin Low Dose] 81 mg PO DAILY 03/16/21 03/16/21 History Pravastatin Sodium [Pravachol] 40 mg PO DAILY 03/16/21 03/16/21 History Allergies Allergy/AdvReac Type Severity Reaction Status Date / Time sumatriptan [From Imitrex] Allergy Rash/Hives Verified 03/16/21 16:13 Physical Exam Vitals: Vital Signs Temp Pulse Resp BP Pulse Ox 03/16/21 16:51 83 17 125/91 100 03/16/21 15:08 98.3 F 86 18 160/84 100 Intake and Output 03/16/21 03/16/21 03/16/21 06:59 14:59 22:59 Other: Weight 71.668 kg PHYSICAL EXAMINATION: GENERAL: The patient is alert and oriented x3, not in any acute distress. Well developed, well nourished. HEENT: Pupils are round and equally reacting to light. EOMI. No scleral icterus. No conjunctival pallor. Normocephalic, atraumatic. No pharyngeal erythema. No thyromegaly. CARDIOVASCULAR: S1 and S2 present. No murmurs, rubs, or gallops. PULMONARY: Chest is clear to auscultation, no wheezing or crackles. ABDOMEN: Soft, nontender, nondistended, normoactive bowel sounds. No palpable organomegaly. MUSCULOSKELETAL: No joint swelling or deformity. EXTREMITIES: No cyanosis, clubbing, or pedal edema. NEUROLOGICAL: Gross neurological examination did not reveal any focal deficits. SKIN: No rashes. Results CBC & Chem 7: 03/16/21 15:22 03/16/21 15:22 Assessment and Plan Plan: - chest pain: We will rule out a concurrent syndromes with 2 more sets of troponins and EKGs patient probably will undergo stress test tomorrow cardiology was consulted. -Hyperlipidemia continue with the statin -Essential hypertension: Patient was started on lisinopril for because of her the cerebral aneurysm as per the patient patient states she doesn't actually have history of essential hypertension although patient blood pressure is well controlled and is in within normal limits on this medication which will be continued -History of DVT in the past patient is not on any anticoagulation at this time.
[2021-03-16] MEDS: NITROGLYCERIN OINT 1 INCH/GM PACKET TOPICAL SCH (22:22)
[2021-03-16] MEDS ORDERED: ONDANSETRON 4 MG/2 ML VIAL IVP PRN (22:33)
[2021-03-16] MEDS ORDERED: ACETAMINOPHEN TAB 325 MG TAB PO PRN (22:33)
[2021-03-17 07:33] VITALS: BP 119/77; PULSE 77; RESP 16; TEMP 97.5
[2021-03-17] MEDS ORDERED: PRAVASTATIN SODIUM 40 MG TAB PO SCH (09:00)
[2021-03-17] MEDS ORDERED: ASPIRIN 325 MG TAB PO SCH (09:00)
[2021-03-17] MEDS ORDERED: lisinopriL 10 MG TAB PO SCH (09:00)
[2021-03-17] MEDS: NITROGLYCERIN OINT 1 INCH/GM PACKET TOPICAL SCH (10:18)
[2021-03-17 10:19] LABS: Chol/HDL Ratio 3.73; LDL Cholesterol,Calculated 97.8 mg/dL (0.0-131.0); VLDL Calculation 25.2 mg/dL (5.00-40.00)
--- NOTE | 2021-03-17 12:00 | ECHOF ---
Referral Reason:chest pain MEASUREMENTS -------- HEIGHT: 167.6 cm WEIGHT: 67.1 kg BP: RVIDd: 2.6 cm (< 3.3) IVSd: 1.2 cm (0.6 - 1.1) LVIDd: 3.2 cm (3.9 - 5.3) LVPWd: 1.0 cm (0.6 - 1.1) IVSs: 1.4 cm LVIDs: 1.6 cm LVPWs: 1.4 cm LAESV Index (A-L): 22.04 ml/m Ao Diam: 2.7 cm (2.0 - 3.7) AV Cusp: 1.9 cm (1.5 - 2.6) LA Diam: 3.9 cm (2.7 - 3.8) MV EXCURSION: 14.230 mm (> 18.000) MV EF SLOPE: 36 mm/s (70 - 150) EPSS: 0.7 cm MV E Tayo: 0.91 m/s MV DecT: 193 ms MV A Tayo: 0.71 m/s MV E/A Ratio: 1.28 RAP: 5.00 mmHg RVSP: 10.41 mmHg FINDINGS -------- This was a technically good study. The left ventricular size is normal. There is mild concentric left ventricular hypertrophy. Overa ll left ventricular systolic function is normal with, an EF between 55 - 60 %. Normal LAP Grade 1 D iastolic Dysfunction. The right ventricle is normal in size. The left atrial size is normal. Normal LA size by volume 22+/-6 ml/m2. The right atrial size is normal. The aortic valve is trileaflet and appears structurally normal. The mitral valve is normal. Mild mitral regurgitation is present. The tricuspid valve appears structurally normal. Mild tricuspid regurgitation present. Right vent ricular systolic pressure is normal at < 35 mmHg. Trace/mild (physiologic) pulmonic regurgitation. The aortic root size is normal. Normal inferior vena cava with normal inspiratory collapse consistent with estimated right atrial pre ssure of 5 mmHg. There is no pericardial effusion. CONCLUSIONS -------- 1. The left ventricular size is normal. 2. There is mild concentric left ventricular hypertrophy. 3. Overall left ventricular systolic function is normal with, an EF between 55 - 60 %. 4. Normal LAP Grade 1 Diastolic Dysfunction. 5. Mild mitral regurgitation is present. 6. Mild tricuspid regurgitation present. 7. Trace/mild (physiologic) pulmonic regurgitation. 8. There is no pericardial effusion. BENEFIT AUTHORIZER: Mary Mei RDCS
--- NOTE | 2021-03-17 12:35 | ECHOS ---
STRESS ECHOCARDIOGRAM LUMASON: N/A Vial INDICATIONS: Chest pain MEDICATIONS: BASELINE HEART RATE: 72 BASELINE BLOOD PRESSURE: 139/65 MAXIMUM HEART RATE: 151 MAXIMUM BLOOD PRESSURE: 192/73 85% MPHR: 135 100% MPHR: 159 METS: 7.5 MAXIMUM STAGE REACHED: 2 TOTAL EXERCISE TIME: 6 minutes 11 seconds CLINICAL INFORMATION: Baseline EKG revealed normal sinus rhythm without significant ST-T changes. Patient walked on standard Cam protocol for 6 minutes 11 seconds, achieved a maximal heart rate of 151 beats per minute which is more than 85% of predicted maximal. She developed fatigue and shortness of breath but did not have angina or arrhythmia. EKG did not reveal any ST-segment changes to indicate ischemia. By EKG criteria, this is a negative stress test with limited exercise capacity. Baseline echo images revealed normal wall motion and wall thickening of all segments. At peak exercise, there was good augmentation of left ventricular wall motion and wall thickening of all segments suggesting that there is no evidence of any stress-induced ischemia on this study. IMPRESSION: 1. Limited exercise capacity with a negative stress test by EKG criteria. 2. Normal stress echocardiogram without evidence of ischemia. MMODL / IJN: [id number] /
--- NOTE | 2021-03-17 15:57 | CONS ---
CONSULTATION Malathi Tello is a 60-year-old lady who has history of hypertension and hyperlipidemia. 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 She is under stress with this. She developed episode of what she describes as a chest pain, sharp in nature that seemed to come on when she was doing some light gardening type work because the weather was nice outside. She had discomfort in the joint initially, she did not have chest pain, then she felt some sharp pain in the chest lasting about 3- 5 minutes and then came into the hospital. No diaphoresis. No nausea or vomiting. Her pain has resolved. She is resting comfortably. Troponins are normal. Blood pressure control is excellent. She has no symptoms at the time of my evaluation. About 5 years ago, she had a negative stress test. PAST MEDICAL HISTORY: 1. Hypertension. 2. Hyperlipidemia. 3. History of intracranial aneurysm in 2005 for which she had coils placed in a [facility] by Dr. Roman. 4. She also has some uterine ablation and some carpal tunnel surgery. ALLERGIES: She is allergic to IMITREX. MEDICATIONS: Medications include pravastatin 40 mg daily, aspirin 81 mg daily, lisinopril 10 mg daily, and she takes vitamin supplements. PHYSICAL EXAMINATION: On examination, blood pressure is 128/70, pulse rate is 70 per minute regular. HEENT unremarkable. Fundus was not examined by me. Neck is supple. No JVD. I do not hear a carotid bruit. There is no thyromegaly. Heart exam reveals S1, S2 heard normally. No rub, murmur or gallop. Lungs are clear. Abdomen is soft, nontender. Lower extremities reveal normal pulses. No edema. Central nervous system is normal. EKG revealed sinus mechanism, no acute changes. IMPRESSION: 1. Chest pain syndrome atypical with a lot of anxiety. 2. History of intracranial aneurysm, status post coiling. 3. Hypertension. 4. Hyperlipidemia. RECOMMENDATIONS: I am recommending that we will perform a stress echocardiogram and a transthoracic echo and if these are normal she can be discharged. I discussed my thoughts in detail with the patient. Thank you very much for the consult. MMODL / IJN: [id number] /
--- NOTE | 2021-03-17 17:10 | P.DS ---
Providers Date of admission: 03/16/21 16:48 Attending physician: Pardeep Vaughn Consults: 03/16/21 16:19 Consult Physician Urgent Consulting Provider: [facility] Consult Reason/Comments: Chest pain Do you want consulting provider notified?: Yes [facility] Course: 60-year-old pleasant female came in with compensative chest pain radiating to her jaw which started when she was a working outside in her lawn patient was diaphoretic as well and bit and was not shaded patient chest pain is mild to moderate pressure like sensation started in the neck area radiating to the entire chest precordial area. Patient had an EKG which is within normal chest x-ray did not show any significant abnormality facet of troponin is negative patient denied any lightheadedness or dizziness. Patient does have family history of heart disease in mother which appears to be valvular heart disease. Patient denied any fever chills patient any cough. Patient chest pain lasted for 5 minutes. 03/17/2021 Patient had a stress echocardiogram which did not show any inducible ischemia patient was cleared by cardiology patient will be discharged today. PHYSICAL EXAMINATION: GENERAL: The patient is alert and oriented x3, not in any acute distress. Well developed, well nourished. HEENT: Pupils are round and equally reacting to light. EOMI. No scleral icterus. No conjunctival pallor. Normocephalic, atraumatic. No pharyngeal erythema. No thyromegaly. CARDIOVASCULAR: S1 and S2 present. No murmurs, rubs, or gallops. PULMONARY: Chest is clear to auscultation, no wheezing or crackles. ABDOMEN: Soft, nontender, nondistended, normoactive bowel sounds. No palpable organomegaly. MUSCULOSKELETAL: No joint swelling or deformity. EXTREMITIES: No cyanosis, clubbing, or pedal edema. NEUROLOGICAL: Gross neurological examination did not reveal any focal deficits. SKIN: No rashes. Assessment and Plan Plan: - chest pain: Rule out acute coronary syndromes after a stress test which was negative patient will be discharged today -Hyperlipidemia continue with the statin -Essential hypertension: The patient is a significantly low with systolics in the 90s and patient occasionally has dizziness because of which I'm cutting down the dose to 5 mg -History of DVT in the past patient is not on any anticoagulation at this time. Plan - Discharge Summary Discharge Rx Participant: No New Discharge Prescriptions: Continue Lysine 500 mg PO DAILY Cholecalciferol [Vitamin D3 (25 Mcg = 1000 Iu)] 1,000 unit PO DAILY Multivitamin/Iron/Folic Acid [Centrum Complete Multivit Tab] 1 tab PO DAILY Aspirin EC [Ecotrin Low Dose] 81 mg PO DAILY Pravastatin Sodium [Pravachol] 40 mg PO DAILY Changed lisinopriL [Zestril] 5 mg PO DAILY #0 Discharge Medication List Lysine 500 mg PO DAILY 06/12/18 [History] Cholecalciferol [Vitamin D3 (25 Mcg = 1000 Iu)] 1,000 unit PO DAILY 05/06/20 [History] Multivitamin/Iron/Folic Acid [Centrum Complete Multivit Tab] 1 tab PO DAILY 05/06/20 [History] Aspirin EC [Ecotrin Low Dose] 81 mg PO DAILY 03/16/21 [History] Pravastatin Sodium [Pravachol] 40 mg PO DAILY 03/16/21 [History] lisinopriL [Zestril] 5 mg PO DAILY #0 03/17/21 [Rx] Follow up Appointment(s)/Referral(s): Kapil Gallegos MD [STAFF PHYSICIAN] - 1 Week Dwight Daniel DO [Primary Care Provider] - 3 Days Discharge Disposition: HOME SELF-CARE
== END 2021-03-17 13:11 | disposition home or self-care (01) ==
LOC: EC 15:01 → 1SOBS 16:48 → 6NMEDSUR 19:43
PROVIDERS: ADMIT Internal Medicine; ATTEND Internal Medicine
DX: R07.89 Other chest pain (principal); E78.5 Hyperlipidemia, unspecified; I10 Essential (primary) hypertension; E78.00 Pure hypercholesterolemia, unspecified; F41.9 Anxiety disorder, unspecified; R61 Generalized hyperhidrosis; R06.02 Shortness of breath; R11.0 Nausea; Z20.822 Contact with and (suspected) exposure to COVID-19; Z79.82 Long term (current) use of aspirin; Z79.899 Other long term (current) drug therapy; Z88.8 Allergy status to other drugs, medicaments and biological substances; Z98.890 Other specified postprocedural states; Z86.79 Personal history of other diseases of the circulatory system; Z86.718 Personal history of other venous thrombosis and embolism; Z82.49 Family history of ischemic heart disease and other diseases of the circulatory system
CPT/HCPCS: 93005 ×2; 96361; 96374; 99285; 36415; 93306; 93351; 80061; 80053; 83735; 84484; 85025; 85610; 85730; 87635; 71046; G0378 ×3; J2405

== ENCOUNTER → 2021-06-15 | Outpatient (CLI) | payer BC ==
--- NOTE | 2021-06-16 10:20 | MM ---
Reason for exam: screening (asymptomatic). Last mammogram was performed 1 year and 1 month ago. History: Patient is postmenopausal. Family history of breast cancer in grandmother. Took hormonal contraceptives for 8 years. Physical Findings: A clinical breast exam by your physician is recommended on an annual basis and results should be correlated with mammographic findings. MG Screening Mammo w CAD Bilateral CC and MLO view(s) were taken. Prior study comparison: May 29, 2020, bilateral MG screening mammo w CAD. September 01, 2018, bilateral MG 3d screening mammo w/cad. The breast tissue is heterogeneously dense. This may lower the sensitivity of mammography. There is no discrete abnormality. No significant changes when compared with prior studies. ASSESSMENT: Negative, BI-RAD 1 RECOMMENDATION: Routine screening mammogram of both breasts in 1 year.
== END | disposition home or self-care (01) ==
LOC: RADMAMWWP 07:32
PROVIDERS: ATTEND Obstetrics & Gynecology
DX: Z12.31 Encounter for screening mammogram for malignant neoplasm of breast (principal); Z78.0 Asymptomatic menopausal state; Z80.3 Family history of malignant neoplasm of breast
CPT/HCPCS: 77067

== ENCOUNTER → 2022-08-29 | Outpatient (CLI) | payer BC ==
--- NOTE | 2022-08-30 17:04 | MM ---
Reason for Exam: Screening (asymptomatic). Last mammogram was performed 1 year(s) and 2 month(s) ago. Patient History: Menarche at age 9. First Full-Term at age 20. Postmenopausal. Patient has history of breast feeding. Patient used Hormonal Contraceptives for 8 years. Maternal grandmother had breast cancer. Risk Values: Bella 5 year model risk: 1.5%. NCI Lifetime model risk: 6.6%. Prior Study Comparison: 01/28/2014 Bilateral Screening Mammogram, [facility]. 02/04/2015 Bilateral Screening Mammogram, [facility]. 07/27/2017 Bilateral Screening Mammogram, [facility]. 09/01/2018 Bilateral Screening Mammogram, [facility]. 05/29/2020 Bilateral Screening Mammogram, [facility]. 06/15/2021 Bilateral Screening Mammogram, [facility]. Tissue Density: There are scattered fibroglandular densities. Findings: Analyzed By CAD. Chronic nodularity is within the right breast. Pattern appears symmetrical and stable. No significant interval changes are evident. Benign vascular calcifications present. No suspicious groups of microcalcifications, spiculated or lobular masses, architectural distortion or other secondary signs of malignancy are mammographically apparent. Overall Assessment: Benign, BI-RAD 2 Management: Screening Mammogram of both breasts in 1 year. A negative mammogram report should not preclude additional follow up of suspicious palpable abnormalities. Patient should continue monthly self breast exam. A clinical breast exam by your physician is recommended on an annual basis and results should be correlated with mammographic findings. Electronically signed and approved by: Diogo Walton D.O. Radiologis
== END | disposition home or self-care (01) ==
LOC: RADMAMWWP 07:24
PROVIDERS: ATTEND Obstetrics & Gynecology
DX: Z12.31 Encounter for screening mammogram for malignant neoplasm of breast (principal); Z78.0 Asymptomatic menopausal state; Z80.3 Family history of malignant neoplasm of breast
CPT/HCPCS: 77063; 77067

== ENCOUNTER → 2023-09-25 | Outpatient (CLI) | payer BC ==
--- NOTE | 2023-09-26 19:00 | MM ---
Reason for Exam: Screening (asymptomatic). Last mammogram was performed 1 year(s) and 1 month(s) ago. Patient History: Menarche at age 9. First Full-Term at age 20. Postmenopausal. Patient has history of breast feeding. Patient used Hormonal Contraceptives for 8 years. Maternal grandmother had breast cancer. Risk Values: Bella 5 year model risk: 1.6%. NCI Lifetime model risk: 6.4%. Prior Study Comparison: 05/29/2020 Bilateral Screening Mammogram, [facility]. 06/15/2021 Bilateral Screening Mammogram, [facility]. 08/29/2022 Bilateral MG 3D screening mammo w/cad, [facility]. Tissue Density: The breast tissue is heterogeneously dense. This may lower the sensitivity of mammography. Findings: Analyzed By CAD. Pattern appears symmetrical and stable. No suspicious groups of microcalcifications, spiculated or lobular masses, architectural distortion or other secondary signs of malignancy are mammographically apparent. Overall Assessment: Benign, BI-RAD 2 Management: Screening Mammogram of both breasts in 1 year. A negative mammogram report should not preclude additional follow up of suspicious palpable abnormalities. Patient should continue monthly self breast exam. A clinical breast exam by your physician is recommended on an annual basis and results should be correlated with mammographic findings. Electronically signed and approved by: Diogo Walton D.O. Radiologis
== END | disposition home or self-care (01) ==
LOC: RADMAMWWP 14:29
PROVIDERS: ATTEND Obstetrics & Gynecology
DX: Z12.31 Encounter for screening mammogram for malignant neoplasm of breast (principal); Z78.0 Asymptomatic menopausal state; Z80.3 Family history of malignant neoplasm of breast
CPT/HCPCS: 77063; 77067

== ENCOUNTER 2024-12-17 07:36 | Observation (INO) | payer MEDICARE, OTHER ==
--- NOTE | 2024-12-17 08:26 | ED ---
General Adult HPI - General Chief complaint: Dizziness Stated complaint: Dizziness Time Seen by Provider: 12/17/24 07:42 Source: patient, RN notes reviewed Mode of arrival: ambulatory Limitations: no limitations - History of Present Illness Initial comments: Patient is a 64-year-old female presenting to the emergency department dizziness. Onset of symptoms was when she turned her head this morning when she woke up. Symptoms have improved however still are present. Symptoms are worsened with head movement and standing up. No history of similar symptoms previously. Patient does have concern because she does have history of brain aneurysm however had headache with those symptoms. No headache at this time. Patient did have some mild chest discomfort this morning. Patient also had a mild chest discomfort a week or so ago. - Related Data Home Medications Medication Instructions Recorded Confirmed Lysine 500 mg PO DAILY 06/12/18 12/17/24 Multivitamin/Iron/Folic Acid 1 tab PO DAILY 05/06/20 12/17/24 [Centrum Complete Multivit Tab] Aspirin EC [Ecotrin Low Dose] 81 mg PO DAILY 03/16/21 12/17/24 Pravastatin Sodium [Pravachol] 40 mg PO DAILY 03/16/21 12/17/24 Ascorbic Acid [Vitamin C] 1,000 mg PO DAILY 12/17/24 12/17/24 Calcium Carbonate [Calcium] 600 mg PO DAILY 12/17/24 12/17/24 Cholecalciferol [Vitamin D3 (25 25 mcg PO DAILY 12/17/24 12/17/24 Mcg = 1000 Iu)] Cyanocobalamin (Vitamin B-12) 1,000 mcg PO DAILY 12/17/24 12/17/24 [Vitamin B-12] Levothyroxine Sodium [Synthroid] 50 mcg PO DAILY 12/17/24 12/17/24 lisinopriL [Zestril] 10 mg PO DAILY 12/17/24 12/17/24 Allergies Allergy/AdvReac Type Severity Reaction Status Date / Time sumatriptan [From Imitrex] Allergy Rash/Hives Verified 12/17/24 11:18 Review of Systems ROS Statement: Those systems with pertinent positive or pertinent negative responses have been documented in the HPI. ROS Other: All systems not noted in ROS Statement are negative. Constitutional: Denies: fever Eyes: Denies: eye pain ENT: Denies: ear pain Respiratory: Denies: dyspnea Cardiovascular: Reports: as per HPI Endocrine: Denies: fatigue Gastrointestinal: Denies: abdominal pain Neurological: Reports: vertigo. Denies: headache, weakness, confusion Past Medical History Past Medical History: Deep Vein Thrombosis (DVT), Hyperlipidemia, Pneumonia, Vascular Disorder Additional Past Medical History / Comment(s): Hx brain aneurysym in 2005 with coiling, DVT R leg, History of Any Multi-Drug Resistant Organisms: None Reported Past Surgical History: Orthopedic Surgery, Uterine Ablation Additional Past Surgical History / Comment(s): Coils placed for aneurysym in 2005, right wrist carpal tunnel surgery, total R hip/keya, L hand injury with surgery, colonoscopy. Past Anesthesia/Blood Transfusion Reactions: Previous Problems w/ Anesthesia Additional Past Anesthesia/Blood Transfusion Reaction / Comment(s): Slow to wake up. Past Psychological History: No Psychological Hx Reported Smoking Status: Never smoker - Past Family History Mother Additional Family Medical History / Comment(s): 2 cardiac valves replaced Father Family Medical History: Osteoarthritis (OA) General Exam Limitations: no limitations General appearance: alert, in no apparent distress Head exam: Present: normocephalic Eye exam: Present: normal appearance Neck exam: Present: normal inspection Respiratory exam: Present: normal lung sounds bilaterally Cardiovascular Exam: Present: regular rate, normal rhythm, normal heart sounds Expanded Peripheral pulses: 2+: Radial (R), Radial (L) GI/Abdominal exam: Present: soft. Absent: tenderness Extremities exam: Present: normal inspection. Absent: pedal edema, calf tenderness Neurological exam: Present: alert, oriented X3, CN II-XII intact. Absent: motor sensory deficit Expanded Neurological exam: Present: protecting the airway Speech: Present: fluid speech Cranial nerves: EOM's Intact: Normal, Facial Sensation: Normal Sensory exam: Upper Extremity Light Touch: Normal, Lower Extremity Light Touch: Normal Motor strength exam: RUE: 5, LUE: 5, RLE: 5, LLE: 5 Eye Response: (4) open spontaneously Motor Response: (6) obeys commands Verbal Response: (5) oriented Psychiatric exam: Present: normal affect, normal mood Skin exam: Present: normal color Course Vital Signs 12/17/24 12/17/24 12/17/24 07:43 10:11 12:27 Temperature 97.5 F L 97.8 F 97.6 F Pulse Rate 67 64 68 Respiratory 18 18 16 Rate Blood Pressure 168/93 156/87 136/85 O2 Sat by Pulse 99 96 96 Oximetry EKG Findings - EKG Results: EKG: interpreted by ERMD, sinus rhythm, normal axis, normal QRS, normal ST/T Medical Decision Making - Medical Decision Making Was pt. sent in by a medical professional or institution (, PA, STRUCTURAL ENGINEER, urgent care, hospital, or long-term...) When possible be specific @ -No Did you speak to anyone other than the patient for history (EMS, parent, family, police, friend...)? What history was obtained from this source @ -No Did you review nursing and triage notes (agree or disagree)? Why? @ -I reviewed and agree with nursing and triage notes Were old charts reviewed (outside hosp., previous admission, EMS record, old EKG, old radiological studies, urgent care reports/EKG's, long-term records)? Report findings @ -No old charts were reviewed Differential Diagnosis (chest pain, altered mental status, abdominal pain women, abdominal pain men, vaginal bleeding, weakness, fever, dyspnea, syncope, headache, dizziness, GI bleed, back pain, seizure, CVA, palpatations, mental health, musculoskeletal)? @ -MDM differential chest pain. Differential Chest Pain: Stable Angina, Unstable Angina, STEMI, NSTEMI Aortic Dissection, Pneumothorax, M usculoskeletal, Esophageal Spasm GERD, Cholecystitis, Pancreatitis, Zoster, this is not meant to be an all-inclusive list. Differential Dizziness: Benign paroxysmal positional Vertigo, Meniere's disease, otitis media, acoustic neuroma, vertebrobasilar insufficiency, cerebellar stroke, encephalitis, hypovolemic, arrhythmia, coronary artery syndrome, anemia, this is not meant to be an all-inclusive list EKG interpreted by me (3pts min.). @ -As above X-rays interpreted by me (1pt min.). @ -Chest x-ray shows no acute process CT interpreted by me (1pt min.). @ -CT scan of brain and CT angiogram shows postoperative changes. U/S interpreted by me (1pt. min.). @ -None done What testing was considered but not performed or refused? (CT, X-rays, U/S, labs)? Why? @ -None What meds were considered but not given or refused? Why? @ -None Did you discuss the management of the patient with other professionals (professionals i.e. Dr., PA, STRUCTURAL ENGINEER, lab, RT, psych nurse, licensed social worker, vender, teacher, sba business development officer, outsole caser)? Give summary @ -Case discussed with Dr. Bernal who will admit covering Dr. Rubio me Was smoking cessation discussed for >3mins.? @ -No Was critical care preformed (if so, how long)? @ -No Were there social determinants of health that impacted care today? How? (H omelessness, low income, unemployed, alcoholism, drug addiction, transportation, low edu. Level, literacy, decrease access to med. care, assisted, rehab)? @ -No Was there de-escalation of care discussed even if they declined (Discuss DNR or withdrawal of care, Hospice)? DNR status @ -No What co-morbidities impacted this encounter? (DM, HTN, Smoking, COPD, CAD, Cancer, CVA, ARF, Chemo, Hep., AIDS, mental health diagnosis, sleep apnea, morbid obesity)? @ -History of cerebral aneurysm Was patient admitted / discharged? Hospital course, mention meds given and route, prescriptions, significant lab abnormalities, going to OR and other pertinent info. @ -Patient presents with vertigo symptoms concern for previous aneurysm. Evaluation unremarkable. On reevaluation patient feels much better however not resolved. Patient is also had chest discomfort and still has mild chest discomfort on reevaluation. Patient will be admitted with cardiac consult. Admission orders written. Patient updated Undiagnosed new problem with uncertain prognosis? @ -No Drug Therapy requiring intensive monitoring for toxicity (Heparin, Nitro, Insulin, Cardizem)? @ -No Were any procedures done? @ -No Diagnosis/symptom? @ -Chest pain, vertigo Acute, or Chronic, or Acute on Chronic? @ -Acute, acute Uncomplicated (without systemic symptoms) or Complicated (systemic symptoms)? @ -Default Side effects of treatment? @ -No Exacerbation, Progression, or Severe Exacerbation? @ -No Poses a threat to life or bodily function? How? (Chest pain, [place], [place], pneumonia, PE, COPD, DKA, ARF, appy, cholecystitis, CVA, Diverticulitis, Homicidal, Suicidal, threat to staff... and all critical care pts) @ -Threat to neurological and cardiac function - Lab Data Result diagrams: 12/17/24 08:22 12/17/24 08:22 Lab Results 12/17/24 12/17/24 12/17/24 Range/Units 08:22 08:22 08:22 WBC 4.9 (3.8-10.6) k/uL RBC 4.90 (3.80-5.40) m/uL Hgb 14.7 (11.4-16.0) gm/dL Hct 44.7 (34.0-46.0) % MCV 91.3 (80.0-100.0) fL MCH 30.1 (25.0-35.0) pg MCHC 32.9 (31.0-37.0) g/dL RDW 12.3 (11.5-15.5) % Plt Count 221 (150-450) k/uL MPV 7.4 Neutrophils % 56 % Lymphocytes % 35 % Monocytes % 5 % Eosinophils % 1 % Basophils % 1 % Neutrophils # 2.8 (1.3-7.7) k/uL Lymphocytes # 1.7 (1.0-4.8) k/uL Monocytes # 0.3 (0-1.0) k/uL Eosinophils # 0.0 (0-0.7) k/uL Basophils # 0.0 (0-0.2) k/uL PT 10.7 (10.0-12.5) sec INR 1.0 (<1.2) APTT 24.1 (22.0-30.0) sec Sodium 138 (137-145) mmol/L Potassium 4.6 (3.5-5.1) mmol/L Chloride 103 (98-107) mmol/L Carbon Dioxide 23 (22-30) mmol/L Anion Gap 12 mmol/L BUN 22 H (7-17) mg/dL Creatinine 0.88 (0.52-1.04) mg/dL Est GFR (CKD-EPI)AfAm 80 (>60 ml/min/1.73 sqM) Est GFR (CKD-EPI)NonAf 70 (>60 ml/min/1.73 sqM) Glucose 98 (74-99) mg/dL Calcium 10.2 (8.4-10.2) mg/dL Magnesium 1.9 (1.6-2.3) mg/dL Total Bilirubin 0.6 (0.2-1.3) mg/dL AST 26 (14-36) U/L ALT 23 (4-34) U/L Alkaline Phosphatase 72 (38-126) U/L Troponin I (0.000-0.034) ng/mL Total Protein 7.9 (6.3-8.2) g/dL Albumin 4.6 (3.5-5.0) g/dL 12/17/24 Range/Units 08:22 WBC (3.8-10.6) k/uL RBC (3.80-5.40) m/uL Hgb (11.4-16.0) gm/dL Hct (34.0-46.0) % MCV (80.0-100.0) fL MCH (25.0-35.0) pg MCHC (31.0-37.0) g/dL RDW (11.5-15.5) % Plt Count (150-450) k/uL MPV Neutrophils % % Lymphocytes % % Monocytes % % Eosinophils % % Basophils % % Neutrophils # (1.3-7.7) k/uL Lymphocytes # (1.0-4.8) k/uL Monocytes # (0-1.0) k/uL Eosinophils # (0-0.7) k/uL Basophils # (0-0.2) k/uL PT (10.0-12.5) sec INR (<1.2) APTT (22.0-30.0) sec Sodium (137-145) mmol/L Potassium (3.5-5.1) mmol/L Chloride (98-107) mmol/L Carbon Dioxide (22-30) mmol/L Anion Gap mmol/L BUN (7-17) mg/dL Creatinine (0.52-1.04) mg/dL Est GFR (CKD-EPI)AfAm (>60 ml/min/1.73 sqM) Est GFR (CKD-EPI)NonAf (>60 ml/min/1.73 sqM) Glucose (74-99) mg/dL Calcium (8.4-10.2) mg/dL Magnesium (1.6-2.3) mg/dL Total Bilirubin (0.2-1.3) mg/dL AST (14-36) U/L ALT (4-34) U/L Alkaline Phosphatase (38-126) U/L Troponin I <0.012 (0.000-0.034) ng/mL Total Protein (6.3-8.2) g/dL Albumin (3.5-5.0) g/dL Disposition Clinical Impression: Chest pain, Vertigo Disposition: ADMITTED IP TO THIS HOSP Is patient prescribed a controlled substance at d/c from ED?: No Referrals: Dwight Daniel DO [Primary Care Provider] - 1-2 days Time of Disposition: 13:29
--- NOTE | 2024-12-17 09:07 | XR ---
EXAMINATION TYPE: XR chest 2V DATE OF EXAM: 12/17/2024 9:02 AM COMPARISON: None. CLINICAL INDICATION: Female, 64 years old with history of Chest Pain, TECHNIQUE: XR chest 2V view(s) obtained. FINDINGS: The heart size is enlarged. The pulmonary vasculature is prominent. Mild diffuse increased lung markings are present. Small effusions are likely present. IMPRESSION: 1. Clinical correlation recommended for congestive heart failure. Follow-up recommended [facility], , 12/17/2024 9:05 AM
[2024-12-17 09:19] LABS: Basophils % (A) 1 %; Eosinophils % (A) 1 %; HCT 44.7 % (34.0-46.0); HGB 14.7 gm/dL (11.4-16.0); Lymphocytes # (A) 1.7 k/uL (1.0-4.8); Lymphocytes % (A) 35 %; MCH 30.1 pg (25.0-35.0); MCHC 32.9 g/dL (31.0-37.0); MCV 91.3 fL (80.0-100.0); Mean Platelet Volume 7.4; Monocytes # (A) 0.3 k/uL (0-1.0); Monocytes % (A) 5 %; Neutrophils # (A) 2.8 k/uL (1.3-7.7); Neutrophils % (A) 56 %; Platelet Count 221 k/uL (150-450); RDW 12.3 % (11.5-15.5); WBC 4.9 k/uL (3.8-10.6)
[2024-12-17 09:30] LABS: ALT 23 U/L (4-34); AST 26 U/L (14-36); African American GFR (CKD) 80 (>60 ml/min/1.73 sqM); Albumin 4.6 g/dL (3.5-5.0); Alkaline Phosphatase 72 U/L (38-126); Anion Gap 12 mmol/L; Blood Urea Nitrogen 22 mg/dL (7-17); Calcium 10.2 mg/dL (8.4-10.2); Carbon Dioxide 23 mmol/L (22-30); Chloride 103 mmol/L (98-107); Glucose 98 mg/dL (74-99); Magnesium 1.9 mg/dL (1.6-2.3); Non-African American GFR(CKD) 70 (>60 ml/min/1.73 sqM); Potassium 4.6 mmol/L (3.5-5.1); Sodium 138 mmol/L (137-145); Total Bilirubin 0.6 mg/dL (0.2-1.3); Total Protein 7.9 g/dL (6.3-8.2)
[2024-12-17 09:41] LABS: Partial Thromboplastin Time 24.1 sec (22.0-30.0); Prothrombin Time 10.7 sec (10.0-12.5)
--- NOTE | 2024-12-17 10:10 | CT ---
EXAMINATION TYPE: CT brain wo con CT DLP: 1498 mGycm, Automated exposure control for dose reduction was used. DATE OF EXAM: 12/17/2024 10:04 AM COMPARISON: None. CLINICAL INDICATION:Female, 64 years old with history of vertigo, dizziness and stiff neck, hx of bra in aneurysm 2006 TECHNIQUE: Brain: Multiple axial CT images of the brain were obtained without IV contrast. . Coronal and sagitta l reformats reviewed. FINDINGS: Brain: Extra-axial spaces: No abnormal extra-axial fluid collections. Ventricular system: Within normal limits Cerebral parenchyma: No acute intraparenchymal hemorrhage or mass effect. The aggarwal-white junction is well differentiated. Cerebellum: Unremarkable. Mass effect: No evidence of midline shift. Intracranial vasculature: Atherosclerotic calcifications of the intracranial vessels. Postsurgical ch anges from aneurysm repair with surgical clip within the region of the right MCA. Soft tissues: Normal. Calvarium/osseous structures: No depressed skull fracture. Paranasal sinuses and mastoid air cells: Clear Visualized orbits: Orbital contents are intact. IMPRESSION: 1. No acute intracranial process. 2. Postsurgical changes from aneurysm repair. [facility], , 12/17/2024 10:07 AM
[2024-12-17] MEDS: MECLIZINE 12.5 MG TAB PO STA (10:11)
[2024-12-17] MEDS: METOCLOPRAMIDE 5 MG/ML 2 ML VIAL IVP STA (10:12)
--- NOTE | 2024-12-17 10:27 | CT ---
EXAMINATION TYPE: CT angio head neck CT DLP: 1498 mGycm, Automated exposure control for dose reduction was used. DATE OF EXAM: 12/17/2024 10:18 AM COMPARISON: CT brain on the same date. CLINICAL INDICATION:Female, 64 years old with history of vertigo, aneurysm hx; PHH, dizziness and sti ff neck, hx of brain aneurysm 2006 TECHNIQUE: Axially acquired helical CT angiogram of the head and neck was obtained with contrast util izing 75 cc of [id number]-370 administered intravenously. Axial images are supplemented with 3D reconstru ctions which were post-processed at an independent workstation. NASCET criteria used. FINDINGS: CTA HEAD: No evidence of acute intracranial hemorrhage, mass effect, or midline shift. The ventricles, sulci, a nd cisterns are unremarkable. The visualized portions of the internal carotid arteries, middle cerebral arteries, anterior cerebral arteries, and posterior cerebral arteries are patent. Postsurgical changes from aneurysm involving t he right MCA M1 segment. No evidence for recurrent aneurysm. The basilar and vertebral arteries are patent. CTA NECK: Right Carotid System: The common carotid artery and external carotid artery are patent. The carotid bifurcation demonstrate s no evidence of hemodynamically significant stenosis. The remaining portions of the internal carotid artery demonstrate normal size without significant narrowing. Left Carotid System: The common carotid artery and external carotid artery are patent. The carotid bifurcation demonstrate s no evidence of hemodynamically significant stenosis. The remaining portions of the internal carotid artery demonstrate normal size without significant narrowing. Vertebral arteries are patent without evidence hemodynamically significant stenosis. There is a three-vessel aortic arch. The origins of the great vessels are patent. No evidence of hemo dynamically significant stenosis. Moderate multilevel degenerative disc disease of the cervical spine. IMPRESSION: 1. No evidence of dissection of the cervical internal carotid arteries or vertebral arteries or any e vidence of significant stenosis at the carotid bifurcations. 2. No evidence of high-grade stenosis or intracranial aneurysm. Postsurgical changes from aneurysm in volving the right MCA. No evidence for recurrent aneurysm. [facility], , 12/17/2024 10:25 AM
--- NOTE | 2024-12-17 10:57 | XR ---
EXAMINATION TYPE: XR chest 2V DATE OF EXAM: 12/17/2024 10:46 AM COMPARISON: 03/16/2021 CLINICAL INDICATION: Female, 64 years old with history of Dizziness, chest pain TECHNIQUE: XR chest 2V view(s) obtained. FINDINGS: The heart size is normal. The pulmonary vasculature is normal. The lungs are clear. IMPRESSION: 1. No acute pulmonary process. [facility], , 12/17/2024 10:55 AM
[2024-12-17] MEDS ORDERED: NITROGLYCERIN SL TABS 0.4 MG TAB SUBLINGUAL PRN (13:29)
[2024-12-17] MEDS: ASPIRIN 81 MG PO STA (13:36)
--- NOTE | 2024-12-17 16:05 | P.HPIM ---
History of Present Illness H&P Date: 12/17/24 Patient is a 64-year-old female with past medical history of intracranial aneurysm status post coiling, history of DVT right leg, hyperlipidemia, hypertension, hypothyroidism who presented to the ER with new onset dizziness, chest pain. She woke up this morning, felt very dizzy, had sensation of the room spinning, she then started feeling chest pain underneath her breast, more to the left, no radiation. She reports neck pain, no headache, did not blurred vision, double vision, sensation changes, unilateral weakness, hearing changes. Her symptoms started improving slowly, she received meclizine in the ER with improvement. On admission she was afebrile with elevated BP 168/93, otherwise stable vitals. Her CBC was unremarkable as well as coagulation panel, chemistry remarkable only for BUN of 22, normal troponin x 2. Brain CT showed no acute process, postsurgical changes from aneurysm repair. CTA brain showed no evidence of dissection, stenosis, aneurysm. Chest x-ray clear. EKG was l nonischemic, QTc 402. Cardiology and neurology consulted by ER. Patient was provided with aspirin. Pertinent positives and negatives as discussed in HPI, a complete review of systems was performed and all other systems are negative. Patient seen and examined at bedside. Vital signs reviewed General: nontoxic, no distress, appears at stated age Derm: warm, dry Head: atraumatic, normocephalic, symmetric Eyes: EOMI, no lid lag, anicteric sclera, pupils equal round reactive to light ENT: Nose and ears atraumatic Neck: No thyromegaly, supple Mouth: no lip lesion, mucus membranes moist Cardiovascular: S1S2 reg, no murmur, no edema Lungs: clear to auscultation bilateral, no rhonchi, no rales, no wheeze, no accessory muscle use Abdominal: soft, nontender to palpation, no guarding, no appreciable organomegaly Ext: no gross muscle atrophy, muscle strength muscle strength 5 out of 5 in all 4 extremities, no contractures Neuro: CN II-XII grossly intact, horizontal nystagmus Psych: Alert, oriented, appropriate affect Assessment/Plan: Vertigo -Meclizine as needed -Neurology consulted Atypical chest pain -Continue aspirin 81, atorvastatin 40 -TTE -Cardiology consulted -Lipid panel pending Hypertension: Continue home lisinopril 10 daily Hypothyroidism: Continue home Synthroid 50 mcg daily The patient is admitted with an anticipated [greater] than 2 midnight stay as [o bservation] status for evaluation of chest pain, vertigo Surrogate decision-maker: CODE STATUS: Full code DVT prophylaxis: Lovenox Anticipated discharge date: 12/[address]: Home A total of [] minutes was spent on the care of this complex patient more than 50% of the time was spent in counseling and care coordination. Past Medical History Past Medical History: Deep Vein Thrombosis (DVT), Hyperlipidemia, Pneumonia, Vascular Disorder Additional Past Medical History / Comment(s): Hx brain aneurysym in 2005 with coiling, DVT R leg, History of Any Multi-Drug Resistant Organisms: None Reported Past Surgical History: Orthopedic Surgery, Uterine Ablation Additional Past Surgical History / Comment(s): Coils placed for aneurysym in 2005, right wrist carpal tunnel surgery, total R hip/keya, L hand injury with surgery, colonoscopy. Past Anesthesia/Blood Transfusion Reactions: Previous Problems w/ Anesthesia Additional Past Anesthesia/Blood Transfusion Reaction / Comment(s): Slow to wake up. Past Psychological History: No Psychological Hx Reported Smoking Status: Never smoker - Past Family History Mother Additional Family Medical History / Comment(s): 2 cardiac valves replaced Father Family Medical History: Osteoarthritis (OA) Medications and Allergies Home Medications Medication Instructions Recorded Confirmed Type Lysine 500 mg PO DAILY 06/12/18 12/17/24 History Multivitamin/Iron/Folic Acid 1 tab PO DAILY 05/06/20 12/17/24 History [Centrum Complete Multivit Tab] Aspirin EC [Ecotrin Low Dose] 81 mg PO DAILY 03/16/21 12/17/24 History Pravastatin Sodium [Pravachol] 40 mg PO DAILY 03/16/21 12/17/24 History Ascorbic Acid [Vitamin C] 1,000 mg PO DAILY 12/17/24 12/17/24 History Calcium Carbonate [Calcium] 600 mg PO DAILY 12/17/24 12/17/24 History Cholecalciferol [Vitamin D3 (25 25 mcg PO DAILY 12/17/24 12/17/24 History Mcg = 1000 Iu)] Cyanocobalamin (Vitamin B-12) 1,000 mcg PO DAILY 12/17/24 12/17/24 History [Vitamin B-12] Levothyroxine Sodium [Synthroid] 50 mcg PO DAILY 12/17/24 12/17/24 History lisinopriL [Zestril] 10 mg PO DAILY 12/17/24 12/17/24 History Allergies Allergy/AdvReac Type Severity Reaction Status Date / Time sumatriptan [From Imitrex] Allergy Rash/Hives Verified 12/17/24 11:18 Physical Exam Vitals: Vital Signs Temp Pulse Resp BP Pulse Ox 12/17/24 14:02 98.0 F 75 16 126/78 96 12/17/24 12:27 97.6 F 68 16 136/85 96 12/17/24 10:11 97.8 F 64 18 156/87 96 12/17/24 07:43 97.5 F L 67 18 168/93 99 Intake and Output 12/17/24 12/17/24 12/17/24 06:59 14:59 22:59 Other: Weight 70.307 kg Results CBC & Chem 7: 12/17/24 08:22 12/17/24 08:22 Labs: Abnormal Lab Results - Last 24 Hours (Table) 12/17/24 Range/Units 08:22 BUN 22 H (7-17) mg/dL
[2024-12-18 03:50] VITALS: RESP 16
[2024-12-18 08:43] LABS: Chol/HDL Ratio 4.34 Ratio; LDL Cholesterol,Calculated 116.9 mg/dL (0.0-131.0)
[2024-12-18] MEDS ORDERED: ASPIRIN 325 MG TAB PO SCH (09:00)
[2024-12-18] MEDS: ASPIRIN 81 MG PO SCH (09:27)
[2024-12-18] MEDS: CHOLECALCIFEROL 25 MCG (1000 IU) TABLET PO SCH (09:27)
[2024-12-18] MEDS: CALCIUM CARBONATE 500 MG CHEWABLE PO SCH (09:27)
[2024-12-18] MEDS: ASCORBIC ACID 500 MG TAB PO SCH (09:27)
[2024-12-18] MEDS: lisinopriL 10 MG TAB PO SCH (09:27)
[2024-12-18] MEDS: MULTIVITAMINS, THERA 1 EACH TAB PO SCH (09:27)
[2024-12-18] MEDS: CYANOCOBALAMIN 500 MCG TAB PO SCH (09:27)
[2024-12-18] MEDS: LEVOTHYROXINE 50 MCG TAB PO SCH (09:27)
[2024-12-18] MEDS: ENOXAPARIN 40 MG/0.4 ML SYRINGE SQ SCH (09:28)
[2024-12-18] MEDS: NON FORMULARY DRUG (Lysine [Lysine] 500 MG Tablet) PO SCH (09:31)
[2024-12-18] MEDS: PRAVASTATIN SODIUM 40 MG TAB PO SCH (09:39)
--- NOTE | 2024-12-18 10:27 | CA ---
Transthoracic Echo Report Name: Malathi Tello Age: 64 Gender: F : 1960 Exam Date: 12/18/2024 07:29 Exam Location: [facility] Ht (in): 66 Wt (lb): 155 Ordering Physician: Yvette James MD Attending/Referring Phys: Retail Pos Specialist Cristina Dahl RDCS Procedure CPT: Indications: Chest Pain Cardiac Hx: Technical Quality: Good Contrast 1: Total Dose (mL): Contrast 2: Total Dose (mL): MEASUREMENTS (Male / Female) Normal Values 2D ECHO LV Diastolic Diameter PLAX 3.8 cm 4.2 - 5.9 / 3.9 - 5.3 cm LV Systolic Diameter PLAX 2.7 cm IVS Diastolic Thickness 0.8 cm 0.6 - 1.0 / 0.6 - 0.9 cm LVPW Diastolic Thickness 0.8 cm 0.6 - 1.0 / 0.6 - 0.9 cm LV Relative Wall Thickness 0.4 LVOT Diameter 1.9 cm LV Diastolic Volume MOD BP 80.5 cm??? 67 - 155 / 56 - 104 cm??? LV Systolic Volume MOD BP 30.0 cm??? 22 - 58 / 19 - 49 cm??? LV Ejection Fraction MOD BP 62.7 % >= 55 % LV Cardiac Index MOD BP 2109.0 cm???/min???m??? LV Diastolic Volume MOD 4C 70.8 cm??? LV Systolic Volume MOD 4C 26.4 cm??? LV Ejection Fraction MOD 4C 62.7 % LV Cardiac Index MOD 4C 1853.2 cm???/min???m??? LV Diastolic Length 4C 8.4 cm LV Systolic Length 4C 7.3 cm LV Diastolic Volume MOD 2C 91.4 cm??? LV Systolic Volume MOD 2C 34.3 cm??? LV Ejection Fraction MOD 2C 62.5 % LV Cardiac Index MOD 2C 2385.3 cm???/min???m??? LV Diastolic Length 2C 8.5 cm LV Systolic Length 2C 7.2 cm LA Volume 41.5 cm??? 18 - 58 / 22 - 52 cm??? LA Volume Index 22.8 cm???/m??? 16 - 28 cm???/m??? DOPPLER AV Peak Velocity 141.5 cm/s AV Peak Gradient 8.0 mmHg AV Mean Velocity 97.2 cm/s AV Mean Gradient 4.2 mmHg AV Velocity Time Integral 27.6 cm LVOT Peak Velocity 97.6 cm/s LVOT Peak Gradient 3.8 mmHg LVOT Velocity Time Integral 21.5 cm LVOT Stroke Volume 63.9 cm??? LVOT Stroke Volume Index 35.6 ml/m??? LVOT Cardiac Index 2670.1 cm???/min???m??? AV Area Cont Eq vti 2.3 cm??? AV Area Cont Eq pk 2.0 cm??? MV Area PHT 3.7 cm??? Mitral E Point Velocity 61.9 cm/s Mitral A Point Velocity 67.9 cm/s Mitral E to A Ratio 0.9 MV Deceleration Time 205.0 ms PV Peak Velocity 79.6 cm/s PV Peak Gradient 2.5 mmHg FINDINGS Left Ventricle Left ventricular ejection fraction is estimated at 60 %. Left ventricular cavity size normal. Left ventricular wall thickness normal. No obvious regional wall motion abnormalities. Right Ventricle Normal right ventricular size and function. Unable to estimate the right ventricular systolic pressure. Right Atrium Normal right atrial size. Left Atrium Normal left atrial size. Mitral Valve Structurally normal mitral valve. No evidence for mitral valve prolapse. No mitral stenosis. Trace mitral regurgitation. Aortic Valve Trileaflet aortic valve. No aortic valve stenosis or regurgitation. Tricuspid Valve Structurally normal tricuspid valve. No tricuspid stenosis. Trace tricuspid regurgitation. Pulmonic Valve Structurally normal pulmonic valve. No pulmonic stenosis. No pulmonic regurgitation. Pericardium No pericardial effusion. Aorta Normal size aortic root and proximal ascending aorta. CONCLUSIONS Normal biventricular systolic function No significant valvular abnormalities noted The pulmonary artery systolic pressure was not calculated No pericardial effusion Previewed by: Dr. Rey Woods MD (Electronically Signed) Final Date: 18 December 2024 10:26
--- NOTE | 2024-12-18 11:11 | P.CRDCN ---
History of Present Illness Consult date: 12/18/24 Consult reason: chest pain History of present illness: This is a 64-year-old female previously seen in the office by Dr. BAKARI Gallegos in 2020 with past medical history of hypertension, hyperlipidemia, intracranial aneurysm status post coiling, DVT of the right leg, hypothyroidism. We have been asked to evaluate the patient for chest pain. Patient states that she developed dizziness and she was concerned because she had the previous aneurysm in 2005. She then developed chest pain under her left breast. She denies shortness of breath, no syncopal episodes. She is non-smoker. No alcohol abuse. Her neurologist is Dr. Oseguera. Patient denies having any chest pain at this time. Blood pressure 128/83, heart rate 68. Discussed results of testing with the patient. At this time, not concerning for cardiac etiology and would recommend outpatient stress testing which patient is agreeable to. -EKG: Sinus rhythm with no acute ST-T wave changes. -Chest x-ray: No acute findings -Laboratory studies: Troponin negative x 3. CBC INR CMP unremarkable. Triglycerides 258, cholesterol 219, LDL 116. -Home cardiac medications: Aspirin 81 mg daily, lisinopril 10 mg daily, pravastatin 40 mg daily, also on levothyroxine. -Echocardiogram reveals normal biventricular systolic function. No significant valvular abnormalities. Pulmonary artery systolic pressure not calculated. No pericardial effusion. Review Of Systems: At the time of my exam: CONSTITUTIONAL: Denies fever or chills. HEENT: Denies blurred vision, vision changes, or eye pain. Denies hemoptysis CARDIOVASCULAR: Denies chest pain. Denies orthopnea. Denies PND. Denies palpita tions RESPIRATORY: Denies shortness of breath. GASTROINTESTINAL: Denies abdominal pain. Denies nausea or vomiting. HEMATOLOGIC: Denies bleeding disorders. GENITOURINARY: Denies any blood in urine. SKIN: Denies puritis. Denies rash. Physical examination: Gen: This is a 64-year-old female in no acute distress VS: reviewed HEENT: Head is atraumatic, normocephalic. Pupils equal, round. Sclerae is anicteric. NECK: Supple. No JVD. LUNGS: Clear to auscultation. No wheezes or rhonchi. No intercostal retractions. HEART: Regular rate and rhythm. No murmur. ABDOMEN: Soft No tenderness. EXTREMITIES: No pedal edema. No calf tenderness. NEUROLOGICAL: Patient is awake, alert and oriented x3. Assessment: Atypical chest pain, acute coronary syndrome ruled out Dizziness History of intracranial aneurysm status post coiling in 2005 Hypertension Hyperlipidemia History of DVT in the right leg Hypothyroidism Plan: Resume patient's home cardiac medications Acute coronary syndrome has been ruled out. Discussed option of outpatient stress testing once patient's dizziness has been fully evaluated. Patient may follow-up in the office with Dr. Woods in 1 to 2 weeks. Thank you kindly for this consultation. Nurse practitioner note has been reviewed, I agree with documented findings and plan of care. Patient was seen and examined. Past Medical History Past Medical History: Deep Vein Thrombosis (DVT), Hyperlipidemia, Pneumonia, Vascular Disorder Additional Past Medical History / Comment(s): Hx brain aneurysym in 2005 with coiling, DVT R leg, History of Any Multi-Drug Resistant Organisms: None Reported Past Surgical History: Orthopedic Surgery, Uterine Ablation Additional Past Surgical History / Comment(s): Coils placed for aneurysym in 2005, right wrist carpal tunnel surgery, total R hip/keya, L hand injury with surgery, colonoscopy. uterine ablation 2006, total L hip 2022 Past Anesthesia/Blood Transfusion Reactions: Previous Problems w/ Anesthesia Additional Past Anesthesia/Blood Transfusion Reaction / Comment(s): Slow to wake up. 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 She is independent. Smoking Status: Never smoker Past Alcohol Use History: Occasional Past Drug Use History: None Reported - Past Family History Mother Additional Family Medical History / Comment(s): 2 cardiac valves replaced Father Family Medical History: Osteoarthritis (OA) Medications and Allergies Home Medications Medication Instructions Recorded Confirmed Type Lysine 500 mg PO DAILY 06/12/18 12/17/24 History Multivitamin/Iron/Folic Acid 1 tab PO DAILY 05/06/20 12/17/24 History [Centrum Complete Multivit Tab] Aspirin EC [Ecotrin Low Dose] 81 mg PO DAILY 03/16/21 12/17/24 History Pravastatin Sodium [Pravachol] 40 mg PO DAILY 03/16/21 12/17/24 History Ascorbic Acid [Vitamin C] 1,000 mg PO DAILY 12/17/24 12/17/24 History Calcium Carbonate [Calcium] 600 mg PO DAILY 12/17/24 12/17/24 History Cholecalciferol [Vitamin D3 (25 25 mcg PO DAILY 12/17/24 12/17/24 History Mcg = 1000 Iu)] Cyanocobalamin (Vitamin B-12) 1,000 mcg PO DAILY 12/17/24 12/17/24 History [Vitamin B-12] Levothyroxine Sodium [Synthroid] 50 mcg PO DAILY 12/17/24 12/17/24 History lisinopriL [Zestril] 10 mg PO DAILY 12/17/24 12/17/24 History Allergies Allergy/AdvReac Type Severity Reaction Status Date / Time sumatriptan [From Imitrex] Allergy Rash/Hives Verified 12/17/24 11:18 Physical Exam Vitals: Vital Signs Temp Pulse Pulse Resp BP BP Pulse Ox 12/18/24 07:00 97.9 F 68 16 128/83 97 12/18/24 03:25 98.3 F 74 16 127/79 95 12/17/24 21:16 98.4 F 78 15 127/77 95 12/17/24 17:31 98.0 F 79 15 127/77 96 12/17/24 16:17 98.5 F 79 16 118/76 95 12/17/24 14:02 98.0 F 75 16 126/78 96 12/17/24 12:27 97.6 F 68 16 136/85 96 12/17/24 10:11 97.8 F 64 18 156/87 96 Intake and Output 12/17/24 12/18/24 12/18/24 22:59 06:59 14:59 Other: Voiding Method Toilet Toilet # Voids 1 2 Weight 70.307 kg Results 12/17/24 08:22 12/17/24 08:22 Cardiac Enzymes 12/17/24 12/17/24 12/17/24 Range/Units 08:22 08:22 14:02 AST 26 (14-36) U/L Troponin I <0.012 <0.012 (0.000-0.034) ng/mL 12/17/24 Range/Units 16:17 AST (14-36) U/L Troponin I <0.012 (0.000-0.034) ng/mL Coagulation 12/17/24 Range/Units 08:22 PT 10.7 (10.0-12.5) sec APTT 24.1 (22.0-30.0) sec CBC 12/17/24 Range/Units 08:22 WBC 4.9 (3.8-10.6) k/uL RBC 4.90 (3.80-5.40) m/uL Hgb 14.7 (11.4-16.0) gm/dL Hct 44.7 (34.0-46.0) % Plt Count 221 (150-450) k/uL Comprehensive Metabolic Panel 12/17/24 Range/Units 08:22 Sodium 138 (137-145) mmol/L Potassium 4.6 (3.5-5.1) mmol/L Chloride 103 (98-107) mmol/L Carbon Dioxide 23 (22-30) mmol/L BUN 22 H (7-17) mg/dL Creatinine 0.88 (0.52-1.04) mg/dL Glucose 98 (74-99) mg/dL Calcium 10.2 (8.4-10.2) mg/dL AST 26 (14-36) U/L ALT 23 (4-34) U/L Alkaline Phosphatase 72 (38-126) U/L Total Protein 7.9 (6.3-8.2) g/dL Albumin 4.6 (3.5-5.0) g/dL Current Medications Generic Name Dose Route Start Last Admin Trade Name Freq PRN Reason Stop Dose Admin Ascorbic Acid 1,000 mg 12/18/24 09:00 Ascorbic Acid 500 Mg Tab PO DAILY [facility] Aspirin 81 mg 12/18/24 09:00 Aspirin 81 Mg PO DAILY [facility] Calcium Carbonate/Glycine 500 mg 12/18/24 09:00 Calcium Carbonate 500 Mg Chewable PO DAILY [facility] Cholecalciferol 25 mcg 12/18/24 09:00 Cholecalciferol 25 Mcg (1000 Iu) Tablet PO DAILY [facility] Cyanocobalamin 1,000 mcg 12/18/24 09:00 Cyanocobalamin 500 Mcg Tab PO DAILY [facility] Enoxaparin Sodium 40 mg 12/18/24 09:00 Enoxaparin 40 Mg/0.4 Ml Syringe SQ DAILY [facility] Levothyroxine Sodium 50 mcg 12/18/24 09:00 Levothyroxine 50 Mcg Tab PO DAILY [facility] Lisinopril 10 mg 12/18/24 09:00 Lisinopril 10 Mg Tab PO DAILY [facility] Meclizine HCl 25 mg 12/17/24 16:02 Meclizine 25 Mg Tab PO QID PRN Vertigo Multivitamins 1 each 12/18/24 09:00 Multivitamins, Thera 1 Each Tab PO DAILY [facility] Nitroglycerin 0.4 mg 12/17/24 13:29 Nitroglycerin Sl Tabs 0.4 Mg Tab SUBLINGUAL Q5M PRN Chest Pain Non-Formulary Medication 500 mg 12/18/24 09:00 Lysine [Lysine] PO DAILY [facility] Pravastatin Sodium 40 mg 12/18/24 09:00 Pravastatin Sodium 40 Mg Tab PO DAILY [facility] Intake and Output 12/17/24 12/18/24 12/18/24 22:59 06:59 14:59 Other: Voiding Method Toilet Toilet # Voids 1 2 Weight 70.307 kg 12/17/24 08:22 12/17/24 08:22
[2024-12-18] MEDS: MECLIZINE 25 MG TAB PO PRN (11:19)
[2024-12-18 14:47] VITALS: BP 125/81; PULSE 70; TEMP 98.2
--- NOTE | 2024-12-18 17:27 | P.DS ---
Providers Date of admission: 12/17/24 13:32 Attending physician: Raghu Clements Consults: 12/17/24 13:29 Consult Physician Routine Consulting Provider: Solo Chaney Consult Reason/Comments: vertigo Do you want consulting provider notified?: Yes 12/17/24 13:30 Consult Physician Urgent Consulting Provider: Sarai Hanson Consult Reason/Comments: cp Do you want consulting provider notified?: Yes [facility] Course: Discharge Diagnosis: Atypical chest pain, ACS ruled out Vertigo History of intracranial aneurysm status post coiling 2005 HTN HLD Hypothyroidism Hospital Course: Patient is a 64-year-old female with past medical history of intracranial aneurysm status post coiling, history of DVT right leg, hyperlipidemia, hypertension, hypothyroidism who presented to the ER with new onset dizziness, chest pain. She woke up this morning, felt very dizzy, had sensation of the room spinning, she then started feeling chest pain underneath her breast, more to the left, no radiation. She reports neck pain, no headache, did not blurred vision, double vision, sensation changes, unilateral weakness, hearing changes. Her symptoms started improving slowly, she received meclizine in the ER with improvement. On admission she was afebrile with elevated BP 168/93, otherwise stable vitals. Her CBC was unremarkable as well as coagulation panel, chemistry remarkable only for BUN of 22, normal troponin x 2. Brain CT showed no acute process, postsurgical changes from aneurysm repair. CTA brain showed no evidence of dissection, stenosis, aneurysm. Chest x-ray clear. EKG was nonischemic, QTc 402. Cardiology and neurology consulted by ER. Patient was provided with aspirin. ACS ruled out, patient to continue her current cardiac medications, follow-up as outpatient with Dr. Schafer for outpatient stress testing. Patient was seen by neurology, possible BPPV, cleared for discharge. symptoms resolved at the time of d/c Patient seen and examined at bedside Vital signs reviewed and stable. General: [nontoxic], [no distress], [appears at stated age] Derm: [warm], [dry] Head: [atraumatic], [normocephalic], [symmetric] Eyes: [EOMI], [no lid lag], [anicteric sclera] Mouth: [no lip lesion], [mucus membranes moist] Cardiovascular: [S1S2 reg], [no murmur] Lungs: [CTA bilateral], [no rhonchi, no rales] , [no accessory muscle use] Abdominal: [soft], [ nontender to palpation], [no guarding], [no appreciable organomegaly] Ext: [no gross muscle atrophy], [no edema], [no contractures] Neuro: [ CN II-XI grossly intact], [no focal neuro deficits] Psych: [Alert], [oriented], [appropriate affect] A total of 40 minutes of time were spent preparing this complex discharge summary. Patient was discharged on 12/18. Plan - Discharge Summary New Discharge Prescriptions: New Meclizine [Antivert] 25 mg PO QID PRN #30 tab PRN Reason: Vertigo Continue Lysine 500 mg PO DAILY Multivitamin/Iron/Folic Acid [Centrum Complete Multivit Tab] 1 tab PO DAILY Aspirin EC [Ecotrin Low Dose] 81 mg PO DAILY Ascorbic Acid [Vitamin C] 1,000 mg PO DAILY Calcium Carbonate [Calcium] 600 mg PO DAILY Cholecalciferol [Vitamin D3 (25 Mcg = 1000 Iu)] 25 mcg PO DAILY Cyanocobalamin (Vitamin B-12) [Vitamin B-12] 1,000 mcg PO DAILY lisinopriL [Zestril] 10 mg PO DAILY Levothyroxine Sodium [Synthroid] 50 mcg PO DAILY Pravastatin Sodium [Pravachol] 40 mg PO DAILY Discharge Medication List Lysine 500 mg PO DAILY 06/12/18 [History] Multivitamin/Iron/Folic Acid [Centrum Complete Multivit Tab] 1 tab PO DAILY 05/06/20 [History] Aspirin EC [Ecotrin Low Dose] 81 mg PO DAILY 03/16/21 [History] Pravastatin Sodium [Pravachol] 40 mg PO DAILY 03/16/21 [History] Ascorbic Acid [Vitamin C] 1,000 mg PO DAILY 12/17/24 [History] Calcium Carbonate [Calcium] 600 mg PO DAILY 12/17/24 [History] Cholecalciferol [Vitamin D3 (25 Mcg = 1000 Iu)] 25 mcg PO DAILY 12/17/24 [History] Cyanocobalamin (Vitamin B-12) [Vitamin B-12] 1,000 mcg PO DAILY 12/17/24 [History] Levothyroxine Sodium [Synthroid] 50 mcg PO DAILY 12/17/24 [History] lisinopriL [Zestril] 10 mg PO DAILY 12/17/24 [History] Meclizine [Antivert] 25 mg PO QID PRN #30 tab 12/18/24 [Rx] Follow up Appointment(s)/Referral(s): Rey Woods MD [STAFF PHYSICIAN] - 2 Weeks Dwight Daniel DO [Primary Care Provider] - 1-2 days Patient Instructions/Handouts: Vertigo (ED) Activity/Diet/Wound Care/Special Instructions: Please follow-up with your primary care physician and cardiology Discharge Disposition: HOME SELF-CARE
[2024-12-19] MEDS ORDERED: ATORVASTATIN 40 MG TAB PO SCH (09:00)
--- NOTE | 2024-12-19 11:07 | P.CNNES ---
History of Present Illness Consult date: 12/18/24 Requesting physician: Mariano Wall Reason for Consult: Vertigo History of Present Illness: Patient is a 64-year-old female with history of hypertension, repaired unruptured cerebral aneurysm, came to the hospital yesterday at 7:36 AM for an episode of vertigo. Patient states that yesterday morning she woke up at 6 AM, and as she rolled over, the ceiling started spinning. It lasted for couple minutes associated with nausea but no vomiting. She laid down for 5 to 10 minutes, and then went to the bathroom. As she sat down on the toilet, it happened again, and it lasted for couple minutes this time as well. She also noticed some stiffness in the neck and a headache, therefore got concerned and decided to come to the ER. There were no associated focal numbness, tingling, focal weakness, slurred speech, facial droop, double vision, loss of vision. Patient denied any loss of awareness or loss of consciousness. Patient denies any recent head injury. Denies any recent upper respiratory infection, any pain in the ears, any plugged feeling in the ear, pressure, hearing loss or tinnitus. Patient denies any history of vertigo whatsoever. Patient states that she does drink about 4 to 5 cups of coffee per day and she has not had any coffee the day prior, therefore was feeling if may be related to lack of caffeine. Since in the hospital she has been fine, although sometimes when she gets up, she gets lightheaded. Vital signs on arrival blood pressure 168/93, pulse 87 temperature 97.5. Blood test shows normal CBC, PT PTT, normal CMP. Troponins are negative. EKG showed sinus rhythm with sinus arrhythmia. CT head showed no acute intracranial process. Postsurgical changes from aneurysm repair. I personally reviewed CT head, agree with the findings. Visualized paranasal sinuses and external auditory canals are clear. Chest x-rays are clear. Home medications include aspirin 81 mg, lisinopril 10 mg, levothyroxine, B12, Pravachol 40 mg and multivitamins. Patient has history of hypertension, denies diabetes. Never smoked. Patient was diagnosed with cerebral aneurysm in 2005, after she developed sudden onset of bad headache at work with tunnel vision but did not pass out. Her blood pressure was high. CT scan of the head showed cerebral aneurysm, for which she underwent endovascular coiling by Dr. Jose Alberto Roman in 2005. At present she follows up with Dr. Dhillon, and gets testing every 3 years at [facility]. Review of Systems All pertinent positive and negative review of systems mentioned HPI, otherwise unremarkable. Past Medical History Past Medical History: Deep Vein Thrombosis (DVT), Hyperlipidemia, Pneumonia, Vascular Disorder Additional Past Medical History / Comment(s): Hx brain aneurysym in 2005 with coiling, DVT R leg, History of Any Multi-Drug Resistant Organisms: None Reported Past Surgical History: Orthopedic Surgery, Uterine Ablation Additional Past Surgical History / Comment(s): Coils placed for aneurysym in 2005, right wrist carpal tunnel surgery, total R hip/keya, L hand injury with surgery, colonoscopy. uterine ablation 2006, total L hip 2022 Past Anesthesia/Blood Transfusion Reactions: Previous Problems w/ Anesthesia Additional Past Anesthesia/Blood Transfusion Reaction / Comment(s): Slow to wake up. 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 She is independent. Smoking Status: Never smoker Past Alcohol Use History: Occasional Past Drug Use History: None Reported - Past Family History Mother Additional Family Medical History / Comment(s): 2 cardiac valves replaced Father Family Medical History: Osteoarthritis (OA) Medications and Allergies Home Medications Medication Instructions Recorded Confirmed Type Lysine 500 mg PO DAILY 06/12/18 12/17/24 History Multivitamin/Iron/Folic Acid 1 tab PO DAILY 05/06/20 12/17/24 History [Centrum Complete Multivit Tab] Aspirin EC [Ecotrin Low Dose] 81 mg PO DAILY 03/16/21 12/17/24 History Pravastatin Sodium [Pravachol] 40 mg PO DAILY 03/16/21 12/17/24 History Ascorbic Acid [Vitamin C] 1,000 mg PO DAILY 12/17/24 12/17/24 History Calcium Carbonate [Calcium] 600 mg PO DAILY 12/17/24 12/17/24 History Cholecalciferol [Vitamin D3 (25 25 mcg PO DAILY 12/17/24 12/17/24 History Mcg = 1000 Iu)] Cyanocobalamin (Vitamin B-12) 1,000 mcg PO DAILY 12/17/24 12/17/24 History [Vitamin B-12] Levothyroxine Sodium [Synthroid] 50 mcg PO DAILY 12/17/24 12/17/24 History lisinopriL [Zestril] 10 mg PO DAILY 12/17/24 12/17/24 History Meclizine [Antivert] 25 mg PO QID PRN #30 tab 12/18/24 Rx Allergies Allergy/AdvReac Type Severity Reaction Status Date / Time sumatriptan [From Imitrex] Allergy Rash/Hives Verified 12/17/24 11:18 Physical Examination - Vital Signs Vital Signs: Vital Signs Temp Pulse Resp BP Pulse Ox 12/18/24 14:47 98.2 F 70 16 125/81 95 12/18/24 07:00 97.9 F 68 16 128/83 97 12/18/24 03:25 98.3 F 74 16 127/79 95 12/17/24 21:16 98.4 F 78 15 127/77 95 12/17/24 17:31 98.0 F 79 15 127/77 96 Intake and Output 12/18/24 12/18/24 12/18/24 06:59 14:59 22:59 Intake Total 236 Balance 236 Intake: Oral 236 Other: Voiding Method Toilet Toilet # Voids 2 3 Patient is an elderly female, very pleasant, in no acute distress. Patient is alert awake oriented to time place and person. Speech and language functions are normal. Patient can name and repeat very well. No aphasia or dysarthria. Attention, concentration and fund of knowledge is adequate. On cranial nerve examination, pupils are equal, round and reacting to light, visual lara are full on confrontation, with no neglect on double simultaneous stimulation. Extraocular muscles are intact with no nystagmus. Face is symmetric, tongue protrudes to the midline. Palatal elevation and sensation normal, hearing and shoulder shrug normal, facial sensation normal. On muscle strength testing, there is no pronator drift and the strength is normal in arms and legs distally and proximally. Deep tendon reflexes are symmetric 1 at the biceps, 1 brachioradialis, 2 at the knees, 1 ankles and plantars downgoing. Sensory to touch is equal with no neglect on double simultaneous stimulation. Cerebellar function showed no ataxia for [id number] testing. No dysdiadochokinesia. No ataxia for [id number] testing on either side. Tone and bulk of muscles normal. Gait deferred.. On general examination, there is no carotid bruit or murmur, S1-S2 audible. Chest is clear on consultation. Abdomen is soft nontender. No organomegaly, bowel sounds present. Peripheral pulses are present. No peripheral edema. Results - Laboratory Findings CBC and BMP: 12/17/24 08:22 12/17/24 08:22 Abnormal Lab Findings: Abnormal Labs 12/17/24 12/17/24 08:22 08:22 BUN 22 H Triglycerides 258.00 H Cholesterol 219.00 H VLDL Cholesterol, Calc 51.60 H Assessment and Plan Assessment: * 64-year-old female presented with 2 episodes of transient vertigo, that resolved in couple minutes each time. Symptoms occurred while she was changing her body position. Suspect BPPV. Doubt TIA, as there were no other associated focal neurological symptoms whatsoever. * History of cerebral aneurysm, status post coiling in 2005 * Hypertension * Hyperlipidemia Plan: * CTA of head and neck revealed no evidence of dissection of the cervical internal carotid arteries or vertebral arteries or any evidence of significant stenosis at the carotid bifurcations. No evidence of high-grade stenosis or intracranial aneurysm. Postsurgical changes from aneurysm involving the right MCA. No evidence for recurrent aneurysm. * 2D echo revealed normal biventricular systolic function. LVEF 60%. No obvious regional wall motion abnormalities. Normal left and right atrial size. No valvular abnormalities. * Lipid panel with cholesterol 2019, LDL 116, HDL 50 and triglycerides 258. Patient does take pravastatin 40 mg daily. Recommend optimize control of lipids to target LDL <70. * Continue aspirin 81 mg daily. * Patient to follow-up with her neurologist outpatient. * Neurologically clear for discharge.
== END 2024-12-18 18:12 | disposition home or self-care (01) ==
LOC: EC 07:36 → 6NMEDSUR 13:32
PROVIDERS: ADMIT Student in an Organized Health Care Education/Training Program; ATTEND Student in an Organized Health Care Education/Training Program
DX: R07.89 Other chest pain (principal); R42 Dizziness and giddiness; E03.9 Hypothyroidism, unspecified; I10 Essential (primary) hypertension; E78.5 Hyperlipidemia, unspecified; M54.2 Cervicalgia; Z79.82 Long term (current) use of aspirin; Z79.890 Hormone replacement therapy; Z79.899 Other long term (current) drug therapy; Z88.8 Allergy status to other drugs, medicaments and biological substances; Z86.718 Personal history of other venous thrombosis and embolism; Z86.79 Personal history of other diseases of the circulatory system
CPT/HCPCS: 96374; 99285; 36415; 93005 ×2; 93306; 80061; 80053; 83735; 84484; 85025; 85610; 85730; 71046; 70496; 70450; 70498; G0378 ×2; J2765; Q9967

== ENCOUNTER → 2025-01-07 | Outpatient (CLI) | payer MEDICARE, OTHER ==
--- NOTE | 2025-01-07 14:18 | MM ---
Reason for Exam: Screening (asymptomatic). Last mammogram was performed 1 year(s) and 4 month(s) ago. Patient History: Menarche at age 9. First Full-Term at age 20. Postmenopausal. Patient has history of breast feeding. Patient used Hormonal Contraceptives for 8 years. Maternal grandmother had breast cancer. Risk Values: Bella 5 year model risk: 1.6%. NCI Lifetime model risk: 6.2%. Prior Study Comparison: 06/15/2021 Bilateral Screening Mammogram, [facility]. 08/29/2022 Bilateral MG 3D screening mammo w/cad, [facility]. 09/25/2023 Bilateral MG 3D screening mammo w/cad, [facility]. Tissue Density: The breasts are heterogeneously dense, which may obscure small masses. Findings: Analyzed By CAD. There is no suspicious group of microcalcifications or new suspicious mass in either breast. Overall Assessment: Negative, BI-RAD 1 Management: Screening Mammogram of both breasts in 1 year. . Patient should continue monthly self-breast exams. A clinical breast exam by your physician is recommended on an annual basis. This exam should not preclude additional follow-up of suspicious palpable abnormalities. Note on Bella scores and lifetime risk: 1. A Bella score greater than 3% is considered moderate risk. If this is the case, consider specialist referral to assess eligibility for a risk reducing agent. 2. If overall lifetime risk for the development of breast cancer is 20% or higher, the patient may qualify for future screening with alternating mammogram and breast MRI. [facility], , 01/07/2025 2:15 PM. Electronically signed and approved by: José Miguel Duffy M.D. Radiologis
== END | disposition home or self-care (01) ==
LOC: RADMAMWWP 13:15
PROVIDERS: ATTEND Family Medicine
DX: Z12.31 Encounter for screening mammogram for malignant neoplasm of breast (principal); R92.333 Mammographic heterogeneous density, bilateral breasts; Z78.0 Asymptomatic menopausal state; Z92.0 Personal history of contraception; Z80.3 Family history of malignant neoplasm of breast
CPT/HCPCS: 77063; 77067